=== PATIENT | male | born 1995 | race Caucasian/White ===

== ENCOUNTER 2019-09-26 22:15 | Emergency (ER) | payer OTHER ==
[2019-09-26] MEDS ORDERED: Sodium Chloride 0.9% 1000 ML 1,000 ML IV STA ×3 (22:37→22:40)
[2019-09-26] MEDS ORDERED: BABY ASPIRIN 81 MG CHEW PO ONE (22:38)
--- NOTE | 2019-09-26 22:46 | ERPHSYRPT ---
- History of Present Illness Time Seen by Provider: 09/26/19 22:30 Historian: patient Exam Limitations: no limitations Patient Subjective Stated Complaint: pt states, "I have a headache, dizzy, light headed and pain that hit my chest area which felt like an elephant but that is better not". Pt states, "I felt like my heart was gonna beat out of my chest". Triage Nursing Assessment: pt brought to rm 3, via ambulance. Pt alert and oriented x3, pleasant and cooperative. Pt laying with eyes closed, resting, answers all questions appropriately. Pt c/o headache and tightness to chest, dizziness, lightheadedness. Pts lungs clear, heart tones reg, abd soft with active bs x4 quad. nontender Physician History: Patient had sudden onset of chest pain and palpitations one hour prior to coming into the emergency department. Patient has not taken any of his medications for over one week. Timing/Duration: today, hour(s) (1) Activities at Onset: none Quality: stabbing Location: central Chest Pain Radiation: no radiation Severity of Pain-Max: severe Severity of Pain-Current: moderate Modifying Factors: Improves With: nothing Associated Symptoms: palpitations, fatigue, headache, dizziness, No nausea, No vomiting, No heartburn, No abdominal pain, No shortness of breath, No cough, No hurts to breathe, No diaphoresis, No chills, No fever, No weakness, No swelling/ lump in chest, No syncope, No rash, No back pain Prior Chest Pain/Cardiac Workup: echocardiography (pericarditis) Nitro Today/Relief: no nitro taken today Aspirin Treatment Today: no aspirin today Allergies/Adverse Reactions: latex Adverse Reaction (Mild, Verified 09/26/19 22:34) Rash tape Allergy (Uncoded 09/17/16 18:44) Blisters Home Medications: Aspirin EC 325 mg [Ecotrin 325 MG] 325 mg PO DAILY 09/17/16 [History] buPROPion HCl [Wellbutrin Sr] 150 mg PO BID 09/17/16 [History] Hx Tetanus, Diphtheria Vaccination/Date Given: Yes Hx Influenza Vaccination/Date Given: No Hx Pneumococcal Vaccination/Date Given: No Immunizations Up to Date: Yes - Review of Systems Constitutional: Fatigue, No Fever, No Chills Eyes: No Symptoms, Vision Changes, No Eye Pain, No Double Vision Ears, Nose, & Throat: No Symptoms, No Throat Swelling, No Painful Swallowing Respiratory: No Cough, No Dyspnea Cardiac: Chest Pain, Palpitations, No Edema, No Syncope Abdominal/Gastrointestinal: No Abdominal Pain, No Nausea, No Vomiting, No Diarrhea, No Hematemesis, No Melena Genitourinary Symptoms: No Dysuria, No Frequency, No Hematuria, No Flank Pain Musculoskeletal: No Back Pain, No Neck Pain Skin: No Rash Neurological: Dizziness, Headache, No Focal Weakness, No Parasthesia, No Seizure , No Sensory Changes, No Speech Changes, No Tremors, No Vertigo Psychological: No Symptoms Endocrine: No Symptoms, Polydipsia, No Excessive Sweating Hematologic/Lymphatic: No Easy Bleeding, No Easy Bruising All Other Systems: Reviewed and Negative - Past Medical History Pertinent Past Medical History: Yes Neurological History: Stroke ENT History: No Pertinent History Cardiac History: Other Respiratory History: No Pertinent History Endocrine Medical History: Diabetes Type II Musculoskeletal History: Other GI Medical History: No Pertinent History History: No Pertinent History Psycho-Social History: Depression, Other Male Reproductive Disorders: No Pertinent History Other Medical History: EXPLOSIVE DISORDER, CHRONIC RT ELBOW DISLOCATION, FACTOR V, LACUNAR INFARCT, TESTICULAR ABSCESS, pericarditis, schizophrenic - Past Surgical History Past Surgical History: Yes Neuro Surgical History: No Pertinent History Cardiac: No Pertinent History Respiratory: No Pertinent History Gastrointestinal: Other Genitourinary: No Pertinent History Musculoskeletal: Orthopedic Surgery Male Surgical History: No Pertinent History Other Surgical History: RIGHT arm and elbow surgery.tonsilectomy, rt hand, adenoids removed, back biopsy (birthmark), myringotomy, lt great toenail partial removal, Abscess I&D - Social History Smoking Status: Light tobacco smoker How long have you smoked: 3 yrs Exposure to second hand smoke: Yes Drug Use: marijuana Patient Lives Alone: No - Nursing Vital Signs Nursing Vital Signs: Initial Vital Signs Temperature 97.7 F 09/26/19 22:21 Pulse Rate 116 H 09/26/19 22:21 Respiratory Rate 18 09/26/19 22:21 Blood Pressure 105/88 09/26/19 22:21 O2 Sat by Pulse Oximetry 97 09/26/19 22:21 Pain Scale Pain Intensity 4 - Physical Exam General Appearance: no apparent distress, alert Eye Exam: PERRL/EOMI, eyes nml inspection Ears, Nose, Throat Exam: normal ENT inspection, dry mucous membranes Neck Exam: normal inspection, non-tender, supple, full range of motion, No meningismus, No Brudzinski, No JVD, No lymphadenopathy Respiratory Exam: normal breath sounds, lungs clear, No respiratory distress, No crackles/rales, No rhonchi, No wheezing, No stridor Cardiovascular Exam: regular rate/rhythm, normal heart sounds, capillary refill 2-3 sec Gastrointestinal/Abdomen Exam: soft, normal bowel sounds, No tenderness, No mass , No guarding, No rebound Back Exam: normal inspection, No CVA tenderness, No vertebral tenderness Extremity Exam: normal inspection, normal range of motion, No calf tenderness, No fareed's sign, No pedal edema, No swelling Neurologic Exam: alert, oriented x 3, cooperative, normal mood/affect, sensation nml, No motor deficits Skin Exam: normal color, warm, dry, No rash, No petechiae, No jaundice, No cyanosis SpO2 Interpretation: normal SpO2: 97 O2 Delivery: Room Air - Course Nursing assessment & vital signs reviewed: Yes EKG Interpreted by Me: RATE (117), Sinus Tach, Right [place] Deviation, NORMAL INTERVALS, NORMAL QRS, NORMAL ST-T, Other (negative previous EKG for comparison) - Radiology Exams Chest X-ray Interpretation: Interpreted by me, Reviewed by me, Negative, No Pneumonia , No Pneumothorax, Nml Heart Size, No Infiltrates, Nml Mediastinum - CT Exams Chest CT Interpretation: Tele-radiologist Report, Other (pper radiologist interpretation:lungs: No significant or acute abnormality. No consolidation. Pleural space: No acute abnormality. No pneumothorax. No significant pleural effusion. Heart: Heart meds and instructions socially no acute abnormality. Pulmonary arteries: No vascular intraluminal filling defects to suggest pulmonary embolism. Aortic: No acute abnormality. No aortic aneurysm or dissection. No large lymph nodes. No acute osseous abnormality. No acute fracture. Bilateral retroareolar glandular tissue consistent with gynecomastia. 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 STAT Care 09/26/19 22:38 Active EKG-ER Only STAT Care 09/26/19 22:37 Active IV Insertion STAT Care 09/26/19 22:37 Active IV Insertion-2nd Peripheral STAT Care 09/26/19 22:37 Active Pulse Oximetry (ED) STAT Care 09/26/19 22:38 Active CHEST 1 VIEW (PORTABLE) Stat Exams 09/26/19 22:37 Taken CHEST WITH CONTRAST [CT] Stat Exams 09/26/19 23:23 Taken AMYLASE Routine Lab 09/26/19 23:09 Completed BLOOD CULTURE Stat Lab 09/26/19 23:51 Received BMP Stat Lab 09/27/19 02:09 Completed CBC W DIFF Stat Lab 09/26/19 23:09 Completed CK-Creatinine Phosphokinase Routine Lab 09/26/19 23:09 Completed CMP Routine Lab 09/26/19 23:09 Completed CULTURE,URINE Stat Lab 09/26/19 22:37 Received ETHYL ALCOHOL Routine Lab 09/26/19 23:09 Completed LIPASE Routine Lab 09/26/19 23:09 Completed Lactic Acid Stat Lab 09/27/19 02:20 Results Lactic Acid Urgent Lab 09/26/19 23:15 Completed MAGNESIUM Routine Lab 09/26/19 23:09 Completed PROTIME WITH INR Stat Lab 09/26/19 23:09 Completed PTT Stat Lab 09/26/19 23:09 Completed TROPONIN Q3H Lab 09/26/19 23:09 Completed TROPONIN Q3H Lab 09/27/19 02:09 Completed TROPONIN Q3H Lab 09/27/19 04:45 Ordered TROPONIN Q3H Lab 09/27/19 07:45 Ordered TROPONIN Q3H Lab 09/27/19 10:45 Ordered UA W/RFX UR CULTURE Stat Lab 09/26/19 22:37 Completed VENOUS BLOOD GAS Urgent Lab 09/26/19 23:15 Completed Medication Summary Discontinued Medications Generic Name Dose Route Start Last Admin Trade Name Freq PRN Reason Stop Dose Admin Acetaminophen 975 mg 09/27/19 02:51 09/27/19 03:04 Tylenol 325 Mg PO 09/27/19 02:52 975 mg STAT ONE Administration Acetaminophen Confirm 09/27/19 03:00 Tylenol 325 Mg Administered 09/27/19 03:01 Dose 975 mg .ROUTE .STK-MED ONE Aspirin 324 mg 09/26/19 22:38 09/26/19 22:55 Baby Aspirin 81 Mg Chew PO 09/26/19 22:39 324 mg STAT ONE Administration Aspirin Confirm 09/26/19 22:53 Baby Aspirin 81 Mg Chew Administered 09/26/19 22:54 Dose 324 mg .ROUTE .STK-MED ONE Diphenhydramine HCl 25 mg 09/27/19 01:43 09/27/19 01:56 Benadryl 50 Mg/Ml IV 09/27/19 01:44 25 mg STAT ONE Administration Diphenhydramine HCl Confirm 09/27/19 01:53 Benadryl 50 Mg/Ml Administered 09/27/19 01:54 Dose 50 mg .ROUTE .STK-MED ONE Diphenhydramine HCl 25 mg 09/27/19 02:51 09/27/19 03:05 Benadryl 50 Mg/Ml IV 09/27/19 02:52 25 mg STAT ONE Administration Diphenhydramine HCl Confirm 09/27/19 03:00 Benadryl 50 Mg/Ml Administered 09/27/19 03:01 Dose 50 mg .ROUTE .STK-MED ONE Hydromorphone HCl 1 mg 09/27/19 02:51 09/27/19 03:06 Hydromorphone 1 Mg/Ml Ampule IV 09/27/19 02:52 1 mg STAT ONE Administration Hydromorphone HCl Confirm 09/27/19 03:00 Hydromorphone 1 Mg/Ml Ampule Administered 09/27/19 03:01 Dose 1 mg .ROUTE .STK-MED ONE Sodium Chloride 1,000 mls @ 999 mls/hr 09/26/19 22:37 09/26/19 22:54 Sodium Chloride 0.9% 1000 Ml IV 09/26/19 23:37 999 mls/hr .Q1H1M STA Administration Sodium Chloride 1,000 mls @ 999 mls/hr 09/26/19 22:38 09/26/19 22:55 Sodium Chloride 0.9% 1000 Ml IV 09/26/19 23:38 999 mls/hr .Q1H1M STA Administration Sodium Chloride 1,000 mls @ 999 mls/hr 09/26/19 22:40 09/27/19 00:19 Sodium Chloride 0.9% 1000 Ml IV 09/26/19 23:40 999 mls/hr .Q1H1M STA Administration Sodium Chloride Confirm 09/26/19 22:53 Sodium Chloride 0.9% 1000 Ml Administered 09/26/19 22:54 Dose 2,000 mls @ ud .ROUTE .STK-MED ONE Sodium Chloride Confirm 09/27/19 00:15 Sodium Chloride 0.9% 1000 Ml Administered 09/27/19 00:16 Dose 1,000 mls @ ud .ROUTE .STK-MED ONE Insulin Human Regular 14 unit 09/26/19 23:43 09/27/19 00:20 Novolin R IV 09/26/19 23:44 14 unit STAT ONE Administration Insulin Human Regular Confirm 09/27/19 00:15 Novolin R Administered 09/27/19 00:16 Dose 14 unit .ROUTE .STK-MED ONE Ketorolac Tromethamine 30 mg 09/27/19 01:43 09/27/19 01:56 Toradol 30 Mg Injection IV 09/27/19 01:44 30 mg STAT ONE Administration Ketorolac Tromethamine Confirm 09/27/19 01:53 Toradol 30 Mg Injection Administered 09/27/19 01:54 Dose 30 mg .ROUTE .STK-MED ONE Morphine Sulfate 4 mg 09/26/19 23:35 09/27/19 00:17 Morphine Sulfate 4 Mg Inj IV 09/26/19 23:36 4 mg STAT ONE Administration Morphine Sulfate Confirm 09/27/19 00:15 Morphine Sulfate 4 Mg Inj Administered 09/27/19 00:16 Dose 4 mg .ROUTE .STK-MED ONE Lab/Rad Data: Laboratory Result Diagrams 09/26/19 23:09 09/27/19 02:09 Laboratory Results 09/27/19 09/27/19 09/27/19 Range/Units 02:20 02:09 02:09 WBC (4.0-10.5) K/mm3 RBC (4.1-5.6) M/mm3 Hgb (12.5-18.0) gm/dl Hct (42-50) % MCV (78-100) fl MCH (26-32) pg MCHC (32-36) g/dl RDW (11.5-14.0) % Plt Count (150-450) K/mm3 MPV (6-9.5) fl Gran % (36.0-66.0) % Eos # (Auto) (0-0.5) Absolute Lymphs (auto) (1.0-4.6) Absolute Monos (auto) (0.0-1.3) Lymphocytes % (24.0-44.0) % Monocytes % (0.0-12.0) % Eosinophils % (0.00-5.0) % Basophils % (0.0-0.4) % Absolute Granulocytes (1.4-6.9) Basophils # (0-0.4) PT (8.83-12.87) SECONDS INR (0.8-3.0) APTT (24.1-36.1) SECONDS pO2/FiO2 Ratio % VBG pH (7.32-7.42) VBG pCO2 at Pat Temp (42-55) mm/Hg VBG pO2 at Pat Temp (25-40) mm/Hg VBG HCO3 (22-28) meq/L VBG O2 Sat (Brian) (95-100) VBG Base Excess (-2.0-2.0) VBG Hemoglobin VBG Carboxyhemoglobin (0.0-6.9) % T HGB POC Potassium (3.5-5.1) Sodium 140 (137-145) mmol/L Potassium 4.0 (3.5-5.1) mmol/L Chloride 106 (98-107) mmol/L Carbon Dioxide 24 (22-30) mmol/L Anion Gap 13.5 (5-15) MEQ/L BUN 5 L (9-20) mg/dL Creatinine 0.42 L (0.66-1.25) mg/dL Estimated GFR > 60.0 ML/MIN Glucose 324 H (74-106) mg/dL Lactic Acid 2.1 H (0.4-2.0) Calcium 9.2 (8.4-10.2) mg/dL Magnesium (1.6-2.3) mg/dL Total Bilirubin (0.2-1.3) mg/dL AST (17-59) U/L ALT (0-50) U/L Alkaline Phosphatase (38-126) U/L Creatine Kinase (55-170) U/L Troponin I < 0.012 (0.000-0.034) ng/mL Serum Total Protein (6.3-8.2) g/dL Albumin (3.5-5.0) g/dL Amylase (30-110) U/L Lipase (23-300) U/L Urine Color (YELLOW) Urine Appearance (CLEAR) Urine pH (5-6) Ur Specific [place] (1.005-1.025) Urine Protein (Negative) Urine Ketones (NEGATIVE) Urine Blood (0-5) [place]/ul Urine Nitrite (NEGATIVE) Urine Bilirubin (NEGATIVE) Urine Urobilinogen (0-1) mg/dL Ur Leukocyte Esterase (NEGATIVE) Urine WBC (Auto) (0-5) /HPF Urine RBC (Auto) (0-2) /HPF U Epithel Cells (Auto) (FEW) /HPF Urine Bacteria (Auto) (NEGATIVE) /HPF Urine Culture Reflexed (NO) Urine Glucose (NEGATIVE) mg/dL Ethyl Alcohol (0-10) mg/dL 09/26/19 09/26/19 09/26/19 Range/Units 23:15 23:09 23:09 WBC (4.0-10.5) K/mm3 RBC (4.1-5.6) M/mm3 Hgb (12.5-18.0) gm/dl Hct (42-50) % MCV (78-100) fl MCH (26-32) pg MCHC (32-36) g/dl RDW (11.5-14.0) % Plt Count (150-450) K/mm3 MPV (6-9.5) fl Gran % (36.0-66.0) % Eos # (Auto) (0-0.5) Absolute Lymphs (auto) (1.0-4.6) Absolute Monos (auto) (0.0-1.3) Lymphocytes % (24.0-44.0) % Monocytes % (0.0-12.0) % Eosinophils % (0.00-5.0) % Basophils % (0.0-0.4) % Absolute Granulocytes (1.4-6.9) Basophils # (0-0.4) PT 11.9 (8.83-12.87) SECONDS INR 1.05 (0.8-3.0) APTT 32.0 (24.1-36.1) SECONDS pO2/FiO2 Ratio 21.0 % VBG pH 7.40 (7.32-7.42) VBG pCO2 at Pat Temp 38 L (42-55) mm/Hg VBG pO2 at Pat Temp 87 H (25-40) mm/Hg VBG HCO3 23.5 (22-28) meq/L VBG O2 Sat (Brian) 97.8 (95-100) VBG Base Excess -1.0 (-2.0-2.0) VBG Hemoglobin 15.0 VBG Carboxyhemoglobin 5.8 (0.0-6.9) % T HGB POC Potassium 3.9 (3.5-5.1) Sodium 140 (137-145) mmol/L Potassium 4.1 (3.5-5.1) mmol/L Chloride 103 (98-107) mmol/L Carbon Dioxide 24 (22-30) mmol/L Anion Gap 16.1 H (5-15) MEQ/L BUN 6 L (9-20) mg/dL Creatinine 0.45 L (0.66-1.25) mg/dL Estimated GFR > 60.0 ML/MIN Glucose 402 H (74-106) mg/dL Lactic Acid 3.5 H (0.4-2.0) Calcium 9.4 (8.4-10.2) mg/dL Magnesium 1.8 (1.6-2.3) mg/dL Total Bilirubin 0.40 (0.2-1.3) mg/dL AST 24 (17-59) U/L ALT 25 (0-50) U/L Alkaline Phosphatase 104 (38-126) U/L Creatine Kinase 40 L (55-170) U/L Troponin I < 0.012 (0.000-0.034) ng/mL Serum Total Protein 7.8 (6.3-8.2) g/dL Albumin 4.3 (3.5-5.0) g/dL Amylase 58 (30-110) U/L Lipase 76 (23-300) U/L Urine Color (YELLOW) Urine Appearance (CLEAR) Urine pH (5-6) Ur Specific [place] (1.005-1.025) Urine Protein (Negative) Urine Ketones (NEGATIVE) Urine Blood (0-5) Kameron/ul Urine Nitrite (NEGATIVE) Urine Bilirubin (NEGATIVE) Urine Urobilinogen (0-1) mg/dL Ur Leukocyte Esterase (NEGATIVE) Urine WBC (Auto) (0-5) /HPF Urine RBC (Auto) (0-2) /HPF U Epithel Cells (Auto) (FEW) /HPF Urine Bacteria (Auto) (NEGATIVE) /HPF Urine Culture Reflexed (NO) Urine Glucose (NEGATIVE) mg/dL Ethyl Alcohol < 10 (0-10) mg/dL 09/26/19 09/26/19 Range/Units 23:09 22:37 WBC 7.4 (4.0-10.5) K/mm3 RBC 5.23 (4.1-5.6) M/mm3 Hgb 15.1 (12.5-18.0) gm/dl Hct 42.9 (42-50) % MCV 82.0 (78-100) fl MCH 28.9 (26-32) pg MCHC 35.2 (32-36) g/dl RDW 13.1 (11.5-14.0) % Plt Count 233 (150-450) K/mm3 MPV 10.3 H (6-9.5) fl Gran % 61.4 (36.0-66.0) % Eos # (Auto) 0.03 (0-0.5) Absolute Lymphs (auto) 2.43 (1.0-4.6) Absolute Monos (auto) 0.38 (0.0-1.3) Lymphocytes % 32.8 (24.0-44.0) % Monocytes % 5.1 (0.0-12.0) % Eosinophils % 0.4 (0.00-5.0) % Basophils % 0.3 (0.0-0.4) % Absolute Granulocytes 4.55 (1.4-6.9) Basophils # 0.02 (0-0.4) PT (8.83-12.87) SECONDS INR (0.8-3.0) APTT (24.1-36.1) SECONDS pO2/FiO2 Ratio % VBG pH (7.32-7.42) VBG pCO2 at Pat Temp (42-55) mm/Hg VBG pO2 at Pat Temp (25-40) mm/Hg VBG HCO3 (22-28) meq/L VBG O2 Sat (Brian) (95-100) VBG Base Excess (-2.0-2.0) VBG Hemoglobin VBG Carboxyhemoglobin (0.0-6.9) % T HGB POC Potassium (3.5-5.1) Sodium (137-145) mmol/L Potassium (3.5-5.1) mmol/L Chloride (98-107) mmol/L Carbon Dioxide (22-30) mmol/L Anion Gap (5-15) MEQ/L BUN (9-20) mg/dL Creatinine (0.66-1.25) mg/dL Estimated GFR ML/MIN Glucose (74-106) mg/dL Lactic Acid (0.4-2.0) Calcium (8.4-10.2) mg/dL Magnesium (1.6-2.3) mg/dL Total Bilirubin (0.2-1.3) mg/dL AST (17-59) U/L ALT (0-50) U/L Alkaline Phosphatase (38-126) U/L Creatine Kinase (55-170) U/L Troponin I (0.000-0.034) ng/mL Serum Total Protein (6.3-8.2) g/dL Albumin (3.5-5.0) g/dL Amylase (30-110) U/L Lipase (23-300) U/L Urine Color STRAW (YELLOW) Urine Appearance CLEAR (CLEAR) Urine pH 6.0 (5-6) Ur Specific [place] 1.038 (1.005-1.025) Urine Protein 100 (Negative) Urine Ketones NEGATIVE (NEGATIVE) Urine Blood NEGATIVE (0-5) Kameron/ul Urine Nitrite NEGATIVE (NEGATIVE) Urine Bilirubin NEGATIVE (NEGATIVE) Urine Urobilinogen NEGATIVE (0-1) mg/dL Ur Leukocyte Esterase NEGATIVE (NEGATIVE) Urine WBC (Auto) NONE (0-5) /HPF Urine RBC (Auto) NONE (0-2) /HPF U Epithel Cells (Auto) NONE (FEW) /HPF Urine Bacteria (Auto) NONE (NEGATIVE) /HPF Urine Culture Reflexed ORDERED SEPARATELY (NO) Urine Glucose >=500 (NEGATIVE) mg/dL Ethyl Alcohol (0-10) mg/dL - Progress Progress: re-examined Air Movement: good Progress Note: 09/26/19 23:30 Patient has been in sinus tachycardia on the desk monitor in the 110s. Patient would like to go to [facility] as that was his original desire when the EMS personnel transported him to the hospital as he gets his medical care at that facility and he is from [place], [place]. Patient does not want transfer via ambulance due to cost issues. 09/26/19 23:35 Patient states he will stay for further evaluation and management. Still with a headache. 09/27/19 01:29 Headache has improved with pain down to a 4. Patient is in sinus tachycardia on the desk monitor in the 110s. 09/27/19 02:25 Headache resolved. No Neurologic deficits. Patient has maintained sinus rhythm throughout his time on the desk monitor with rate now in the low 100s. 09/27/19 02:43 Patient has not had any chest pain since the early first 10 minutes of being in the emergency department. Sinus rhythm with no ectopy, arrhythmia, ischemia, injury or infarction throughout his time in the emergency department HEART score: 2, up to 1.6% of MACE in the next 6 weeks, low risk this being cardiac in origin with two negative troponins 09/27/19 02:54 Headache has returned. IV pain medication with oral Tylenol will be given to the patient 09/27/19 03:56 Patient's headache has resolved and pulse is in late 90s in sinus rhythm on repeat evaluation. Patient will be discharged home since low probability of any acute cardiac, pulmonary, vascular or infectious etiology causing his chest pain at this time and to continue evaluation as an outpatient. Blood Culture(s) Obtained: Yes Antibiotics given: No Counseled pt/family regarding: lab results, diagnosis, need for follow-up, rad results - Departure Departure Disposition: Home Clinical Impression: Hyperglycemia without ketosis, Dehydration, Elevated blood pressure reading without diagnosis of hypertension, Noncompliance, Acute chest pain Headache Qualifiers: Headache type: unspecified Headache chronicity pattern: acute headache Intractability: not intractable Qualified Code(s): R51 - Headache Condition: Good Critical Care Time: Yes Critical Care Time(excluding separately billable procedures): Critical 30-74 mins Referrals: THERESE DOOLEY [Primary Care Provider] - 09/27/19 Instructions: DASH Diet, Dehydration, Adult (DC), Chest Pain (DC), Hyperglycemia, Adult (DC), Headache, Adult (DC) Additional Instructions: Discharge/Care Plan MAYNOR RUIZ ELIZ FLEMING was seen on 09/27/19 in the Emergency Room. The patient was counseled regarding Diagnosis,Lab results, Imaging studies, need for follow up and when to return to the Emergency Room. Return immediately if any new chest pain, shortness of breath, fever, back pain, skin rash or any other concerning signs of symptoms that were not present at today's emergency department visit for immediate re-evaluation in the emergency department. Prescriptions given: None Discharge Note I have spoken with the patient and family. I have explained the patient's condition, diagnosis and treatment plan based on the information available to me at this time. I have answered the patient's and family's questions and addressed any concerns. The patient and family have a good understanding of the patient's diagnosis, condition and treatment plan as can be expected at this point. The vital signs have been stable. The patient's condition is stable and appropriate for discharge from the emergency department. The patient will pursue further outpatient evaluation with the primary care physician or other designated or consulting physician as outlined in the discharge instructions. The patient and family are agreeable to this plan of care and follow-up instructions have been explained in detail. The patient and family have received these instruction. The patient and family are aware that any significant change in condition or worsening of symptoms should prompt an immediate return to this or the closest emergency department or call 911.
[2019-09-26] MEDS ORDERED: Sodium Chloride 0.9% 1000 ML 2,000 ML ONE (22:53)
[2019-09-26] MEDS ORDERED: BABY ASPIRIN 81 MG CHEW ONE (22:53)
[2019-09-26 23:10] LABS: Absolute Neutrophil Ct (ANC) 4.55 (1.4-6.9); BASOPHIL % 0.3 % (0.0-0.4); Basophil (Absolute #) 0.02 (0-0.4); Eosinophil % 0.4 % (0.00-5.0); Eosinophil (Absolute #) 0.03 (0-0.5); Hematocrit 42.9 % (42-50); Hemoglobin 15.1 gm/dl (12.5-18.0); Lymphocyte (Absolute #) 2.43 (1.0-4.6); Lymphocytes % 32.8 % (24.0-44.0); Mean Corpuscular Hemoglobin 28.9 pg (26-32); Mean Corpuscular Hgb Concent. 35.2 g/dl (32-36); Mean Platelet Volume 10.3 fl (6-9.5); Monocyte (Absolute #) 0.38 (0.0-1.3); Monocytes % 5.1 % (0.0-12.0); Neutrophil % 61.4 % (36.0-66.0); Platelet Count 233 K/mm3 (150-450); Red Blood Count 5.23 M/mm3 (4.1-5.6); Red Cell Distribution Width 13.1 % (11.5-14.0); White Blood Count 7.4 K/mm3 (4.0-10.5)
[2019-09-26 23:19] LABS: INR 1.05 (0.8-3.0); PROTIME 11.9 SECONDS (8.83-12.87)
[2019-09-26 23:22] LABS: Lactic Acid 3.5 (0.4-2.0); VBG CARBOXYHEMOGLOBIN 5.8 % T HGB (0.0-6.9); VBG HCO3- 23.5 meq/L (22-28); VBG O2 SATURATION 97.8 (95-100); VBG PCO2 38 mm/Hg (42-55); VBG PO2 87 mm/Hg (25-40); VBG POTASSIUM 3.9 (3.5-5.1)
[2019-09-26 23:35] LABS: ALBUMIN 4.3 g/dL (3.5-5.0); ALKALINE PHOSPHATASE 104 U/L (38-126); AMYLASE 58 U/L (30-110); ANION GAP 16.1 MEQ/L (5-15); BLOOD UREA NITROGEN 6 mg/dL (9-20); CHLORIDE 103 mmol/L (98-107); CK-Creatinine Phosphokinase 40 U/L (55-170); Calcium 9.4 mg/dL (8.4-10.2); Carbon Dioxide 24 mmol/L (22-30); Creatinine 1 0.45 mg/dL (0.66-1.25); Glucose 402 mg/dL (74-106); LIPASE 76 U/L (23-300); MAGNESIUM 1.8 mg/dL (1.6-2.3); Potassium 4.1 mmol/L (3.5-5.1); SGOT/AST 24 U/L (17-59); SGPT/ALT 25 U/L (0-50); SODIUM 140 mmol/L (137-145); Total Protein 7.8 g/dL (6.3-8.2)
[2019-09-26] MEDS ORDERED: MORPHINE SULFATE 4 MG INJ IV ONE (23:35)
[2019-09-26 23:39] LABS: ETHYL ALCOHOL < 10 mg/dL (0-10); TROPONIN < 0.012 ng/mL (0.000-0.034)
[2019-09-26] MEDS ORDERED: NovoLIN R IV ONE (23:43)
[2019-09-27] MEDS ORDERED: Sodium Chloride 0.9% 1000 ML 1,000 ML ONE (00:15)
[2019-09-27] MEDS ORDERED: MORPHINE SULFATE 4 MG INJ ONE (00:15)
[2019-09-27] MEDS ORDERED: NovoLIN R ONE (00:15)
[2019-09-27 01:10] LABS: Appearance CLEAR (CLEAR); Bilirubin NEGATIVE (NEGATIVE); Blood NEGATIVE Ery/ul (0-5); Glucose >=500 mg/dL (NEGATIVE); Ketones NEGATIVE (NEGATIVE); Leukocyte Esterase NEGATIVE (NEGATIVE); Nitrite NEGATIVE (NEGATIVE); Protein,Urine Dip 100 (Negative); Specific Gravity 1.038 (1.005-1.025); Urobilinogen NEGATIVE mg/dL (0-1)
[2019-09-27] MEDS ORDERED: TORAdol 30 mg Injection IV ONE (01:43)
[2019-09-27] MEDS ORDERED: BENADRYL 50 MG/ML IV ONE ×2 (01:43→02:51)
[2019-09-27] MEDS ORDERED: TORAdol 30 mg Injection ONE (01:53)
[2019-09-27] MEDS ORDERED: BENADRYL 50 MG/ML ONE ×2 (01:53→03:00)
[2019-09-27 02:22] LABS: ANION GAP 13.5 MEQ/L (5-15); BLOOD UREA NITROGEN 5 mg/dL (9-20); CHLORIDE 106 mmol/L (98-107); Calcium 9.2 mg/dL (8.4-10.2); Carbon Dioxide 24 mmol/L (22-30); Creatinine 1 0.42 mg/dL (0.66-1.25); Glucose 324 mg/dL (74-106); SODIUM 140 mmol/L (137-145)
[2019-09-27 02:24] LABS: Lactic Acid 2.1 (0.4-2.0)
[2019-09-27] MEDS ORDERED: TYLENOL 325 MG PO ONE (02:51)
[2019-09-27] MEDS ORDERED: Hydromorphone 1 mg/ml Ampule IV ONE (02:51)
[2019-09-27] MEDS ORDERED: TYLENOL 325 MG ONE (03:00)
[2019-09-27] MEDS ORDERED: Hydromorphone 1 mg/ml Ampule ONE (03:00)
[2019-09-27 03:55] VITALS: BP 121/83; PULSE 102
[2019-09-27 03:58] VITALS: O2SAT 97
--- NOTE | 2019-09-27 09:10 | XRAY ---
Indication: Chest pain. Comparison: September 17, 2016. Portable chest demonstrates normal heart, lungs, and bony thorax.
--- NOTE | 2019-09-27 09:15 | XRAY ---
Indication: Chest pain, palpitations, and headache. Multiple contiguous axial images obtained through the chest using 80 cc Isovue 370 contrast and PE protocol. Comparison: CT chest without contrast January 22, 2016. There is suboptimal opacification of the pulmonary arteries and mild respiration artifact limiting evaluation for pulmonary embolus. No obvious central pulmonary embolus. Heart is not enlarged. Aorta is normal in course and caliber. No pathologic mediastinal/hilar lymphadenopathy. Lungs are inflated with minimal bilateral dependent atelectasis. Previous bilateral micronodules not seen possibly explained by different since in slice acquisition or respiration artifact. No suspicious pulmonary mass, infiltrate, or effusion. Bony thorax intact. Limited upper abdomen including adrenal glands are unremarkable. Impression: 1. Pulmonary embolus evaluation limited due to suboptimal opacification and respiration artifact. No obvious central pulmonary embolus. 2. Remaining CT chest with contrast exam is negative. Comment: Preliminary interpretation was made by [facility]. No critical discrepancy. CT DI 33.69
== END 2019-09-27 04:05 | disposition home or self-care (01) ==
LOC: ED 22:15
DX: E11.65 Type 2 diabetes mellitus with hyperglycemia (principal); E86.0 Dehydration; R03.0 Elevated blood-pressure reading, without diagnosis of hypertension; Z91.19 Patient's noncompliance with other medical treatment and regimen; R07.9 Chest pain, unspecified; R51 Headache
CPT/HCPCS: 36415; 71260; 80048; 80053; 81001; 82150; 82550; 82805; 82962; 83605; 83690; 83735; 84484; 85025; 85610; 85730; 87040; 87086; 93005; 93041; 96360; 96361; 96374; 96375; 96376; 99291; G0480; 36000; 71045; 80307; 94760; 99285; J1170; J1200; J1885; J2270; A9270-GY

== ENCOUNTER 2021-08-17 04:05 | Emergency (ER) | payer OTHER ==
--- NOTE | 2021-08-17 04:35 | ERPHSYRPT ---
- History of Present Illness Time Seen by Provider: 08/17/21 04:10 Source: patient Exam Limitations: no limitations Physician History: This is a 26-year-old white male patient of Dr. Hogan who presents with history of headache and he feels like possible stroke. Patient went to bed at 1 AM and his headache woke him up out of a sleep at approximately 330. Patient arrives to the emergency department around 4 AM via EMS service. Patient does have a history of restless leg syndrome, anxiety and schizophrenia. He has a history of insulin-dependent diabetes as well. He also states that in the last 2 days he has had generalized sensation of [id number] all over his body. He does present with mild chest pain as well. Upon arrival to the emergency department his systolic blood pressure was approximately 180, therefore we sent him directly to the CT scanner. When he returned his systolic blood pressure is now in the 140s. Patient's blood sugar on arrival was 346 Timing/Duration: today Severity: moderate Character of Deficits: altered sensation, general (difuse) Deficits: no difficulties Baseline/Normal Cognition: alert oriented x 3 Current Cognition: alert oriented x 3 Baseline Gait: walks w/o assistance Associated Symptoms: paresthesia Allergies/Adverse Reactions: diphenhydramine [From Benadryl] Adverse Reaction (Intermediate, Verified 08/17/21 04:50) latex Adverse Reaction (Mild, Verified 08/17/21 04:50) Rash tape Allergy (Uncoded 08/17/21 04:50) Blisters Home Medications: Gabapentin 300 mg [Neurontin 300 mg] 300 mg PO BID 08/17/21 [History] Insulin Glargine,Hum.rec.anlog [Basaglar Kwikpen U-100] 25 unit SQ HS 08/17/21 [History] Insulin Lispro [Admelog] 20 unit SQ TIDWMEALS 08/17/21 [History] Risperidone 2 mg PO BID 08/17/21 [History] Ropinirole HCl 0.25 mg PO HS 08/17/21 [History] Smz/Tmp Ds Tablet [Bactrim Ds Tablet] 1 tab PO Q12H 08/17/21 [History] Hx Tetanus, Diphtheria Vaccination/Date Given: Yes Hx Influenza Vaccination/Date Given: No Hx Pneumococcal Vaccination/Date Given: No Travel Risk - International Travel Have you traveled outside of the country in past 3 weeks: No - Coronavirus Screening Are you exhibiting any of the following symptoms?: No Close contact with a COVID-19 positive Pt in past 14-21 Days: No - Review of Systems Constitutional: No Symptoms Eyes: No Symptoms Ears, Nose, & Throat: No Symptoms Respiratory: No Symptoms Cardiac: No Symptoms Abdominal/Gastrointestinal: No Symptoms Genitourinary Symptoms: No Symptoms Musculoskeletal: No Symptoms Skin: No Symptoms Neurological: Headache, Parasthesia (Generalized) Psychological: No Symptoms Endocrine: No Symptoms Hematologic/Lymphatic: No Symptoms Immunological/Allergic: No Symptoms All Other Systems: Reviewed and Negative - Past Medical History Pertinent Past Medical History: Yes Neurological History: Stroke ENT History: No Pertinent History Cardiac History: Other Respiratory History: No Pertinent History Endocrine Medical History: Diabetes Type II Musculoskeletal History: Other GI Medical History: No Pertinent History History: No Pertinent History Psycho-Social History: Depression, Other Male Reproductive Disorders: No Pertinent History Other Medical History: EXPLOSIVE DISORDER, CHRONIC RT ELBOW DISLOCATION, FACTOR V, LACUNAR INFARCT, TESTICULAR ABSCESS, pericarditis, schizophrenic - Past Surgical History Past Surgical History: Yes Neuro Surgical History: No Pertinent History Cardiac: No Pertinent History Respiratory: No Pertinent History Gastrointestinal: Other Genitourinary: No Pertinent History Musculoskeletal: Orthopedic Surgery Male Surgical History: No Pertinent History Other Surgical History: RIGHT arm and elbow surgery.tonsilectomy, rt hand, adenoids removed, back biopsy (birthmark), myringotomy, lt great toenail partial removal, Abscess I&D - Social History Smoking Status: Light tobacco smoker How long have you smoked: 3 yrs Exposure to second hand smoke: Yes Drug Use: marijuana Patient Lives Alone: No - Nursing Vital Signs Nursing Vital Signs: Initial Vital Signs Temperature 98.4 F 08/17/21 04:08 Pulse Rate 114 H 08/17/21 04:08 Respiratory Rate 20 08/17/21 04:08 Blood Pressure 181/101 08/17/21 04:08 O2 Sat by Pulse Oximetry 98 08/17/21 04:08 Pain Scale Pain Intensity 6 - Shanta Coma Scale Best Eye Response ([place]): (4) open spontaneously Best Verbal Response ([place]): (5) oriented Best Motor Response ([place]): (6) obeys commands [place] Total: 15 - Physical Exam General Appearance: no apparent distress, alert, anxiety, obese Eye Exam: bilateral eye: normal inspection, PERRL, EOMI Ears, Nose, Throat Exam: normal ENT inspection, moist mucous membranes Neck Exam: normal inspection, non-tender, supple, full range of motion Respiratory: normal breath sounds, chest tenderness (Mild central substernal nonradiating), lungs clear, airway intact, No respiratory distress Cardiovascular: tachycardia Gastrointestinal: soft, normal bowel sounds, No tenderness Rectal Exam: not done Back Exam: normal inspection, normal range of motion, No CVA tenderness, No vertebral tenderness Extremity Exam: normal inspection, normal range of motion, pelvis stable Mental Status: alert, oriented x 3, 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 Care 08/17/21 04:53 Active EKG-ER Only STAT Care 08/17/21 04:52 Active IV Insertion STAT Care 08/17/21 04:52 Active NPO (ED) STAT Care 08/17/21 04:52 Active Pulse Oximetry (ED) STAT Care 08/17/21 04:52 Active HEAD WITHOUT CONTRAST [CT] Stat Exams 08/17/21 04:15 Taken CBC W DIFF Stat Lab 08/17/21 05:00 Completed CMP Stat Lab 08/17/21 05:00 Completed POCT GLUCOSE Stat Lab 08/17/21 04:45 Completed PROTIME WITH INR Stat Lab 08/17/21 05:00 Completed TROPONIN Q3H Lab 08/17/21 05:00 Completed TROPONIN Q3H Lab 08/17/21 08:00 Ordered TROPONIN Q3H Lab 08/17/21 11:00 Ordered TROPONIN Q3H Lab 08/17/21 14:00 Ordered TROPONIN Q3H Lab 08/17/21 17:00 Ordered UA W/RFX UR CULTURE Stat Lab 08/17/21 05:01 Completed Urine Triage Profile Stat Lab 08/17/21 05:01 Completed Medication Summary Discontinued Medications Generic Name Dose Route Start Last Admin Trade Name Fletcher PRN Reason Stop Dose Admin Morphine Sulfate 2 mg 08/17/21 04:53 08/17/21 05:07 Morphine Sulfate 2 Mg Inj IV 08/17/21 04:54 2 mg STAT ONE Administration Morphine Sulfate Confirm 08/17/21 05:05 Morphine Sulfate 2 Mg Inj Administered 08/17/21 05:06 Dose 2 mg .ROUTE .STK-MED ONE Ondansetron HCl 4 mg 08/17/21 04:53 08/17/21 05:08 Zofran 4 Mg/2 Ml Vial IV 08/17/21 04:54 4 mg STAT ONE Administration Ondansetron HCl Confirm 08/17/21 05:05 Zofran 4 Mg/2 Ml Vial Administered 08/17/21 05:06 Dose 4 mg .ROUTE .STK-MED ONE Lab/Rad Data: Laboratory Result Diagrams 08/17/21 05:00 08/17/21 05:00 Laboratory Results 08/17/21 08/17/21 08/17/21 Range/Units 05:01 05:01 05:00 WBC (4.0-10.5) K/mm3 RBC (4.1-5.6) M/mm3 Hgb (12.5-18.0) gm/dl Hct (42-50) % MCV (78-100) fl MCH (26-32) pg MCHC (32-36) g/dl RDW (11.5-14.0) % Plt Count (150-450) K/mm3 MPV (7.5-11.0) fl Gran % (36.0-66.0) % Eos # (Auto) (0-0.5) Absolute Lymphs (auto) (1.0-4.6) Absolute Monos (auto) (0.0-1.3) Lymphocytes % (24.0-44.0) % Monocytes % (0.0-12.0) % Eosinophils % (0.00-5.0) % Basophils % (0.0-0.4) % Absolute Granulocytes (1.4-6.9) Basophils # (0-0.4) PT (9.4-12.5) SECONDS INR (0.8-3.0) Sodium (137-145) mmol/L Potassium (3.5-5.1) mmol/L Chloride (98-107) mmol/L Carbon Dioxide (22-30) mmol/L Anion Gap (5-15) MEQ/L BUN (9-20) mg/dL Creatinine (0.66-1.25) mg/dL Estimated GFR ML/MIN Glucose (74-106) mg/dL POC Glucometer (74 to 106) mg/dL Calcium (8.4-10.2) mg/dL Total Bilirubin (0.2-1.3) mg/dL AST (17-59) U/L ALT (0-50) U/L Alkaline Phosphatase (38-126) U/L Troponin I < 0.012 (0.000-0.034) ng/mL Serum Total Protein (6.3-8.2) g/dL Albumin (3.5-5.0) g/dL Urine Color STRAW (YELLOW) Urine Appearance CLEAR (CLEAR) Urine pH 8.0 (5-6) Ur Specific [place] 1.020 (1.005-1.025) Urine Protein NEGATIVE (Negative) Urine Ketones NEGATIVE (NEGATIVE) Urine Blood NEGATIVE (0-5) [place]/ul Urine Nitrite NEGATIVE (NEGATIVE) Urine Bilirubin NEGATIVE (NEGATIVE) Urine Urobilinogen NEGATIVE (0-1) mg/dL Ur Leukocyte Esterase NEGATIVE (NEGATIVE) Urine WBC (Auto) NONE (0-5) /HPF Urine RBC (Auto) NONE (0-2) /HPF U Epithel Cells (Auto) RARE (FEW) /HPF Urine Bacteria (Auto) RARE (NEGATIVE) /HPF Amorphous Crystals FEW (NEGATIVE) /HPF Urine Culture Reflexed NO (NO) Urine Glucose >=500 (NEGATIVE) mg/dL Urine Opiates Level NEGATIVE (NEGATIVE) Ur Methadone NEGATIVE (NEGATIVE) Urine Barbiturates NEGATIVE (NEGATIVE) Ur Phencyclidine (PCP) NEGATIVE (NEGATIVE) Urine Amphetamine NEGATIVE (NEGATIVE) U Benzodiazepine Level NEGATIVE (NEGATIVE) Urine Cocaine NEGATIVE (NEGATIVE) Urine Marijuana (THC) NEGATIVE (NEGATIVE) 08/17/21 08/17/21 08/17/21 Range/Units 05:00 05:00 05:00 WBC 9.5 (4.0-10.5) K/mm3 RBC 5.03 (4.1-5.6) M/mm3 Hgb 14.5 (12.5-18.0) gm/dl Hct 42.4 (42-50) % MCV 84.3 (78-100) fl MCH 28.8 (26-32) pg MCHC 34.2 (32-36) g/dl RDW 13.1 (11.5-14.0) % Plt Count 241 (150-450) K/mm3 MPV 10.3 (7.5-11.0) fl Gran % 60.7 (36.0-66.0) % Eos # (Auto) 0.09 (0-0.5) Absolute Lymphs (auto) 3.03 (1.0-4.6) Absolute Monos (auto) 0.58 (0.0-1.3) Lymphocytes % 32.0 (24.0-44.0) % Monocytes % 6.1 (0.0-12.0) % Eosinophils % 1.0 (0.00-5.0) % Basophils % 0.2 (0.0-0.4) % Absolute Granulocytes 5.74 (1.4-6.9) Basophils # 0.02 (0-0.4) PT 11.9 (9.4-12.5) SECONDS INR 1.01 (0.8-3.0) Sodium 137 (137-145) mmol/L Potassium 4.0 (3.5-5.1) mmol/L Chloride 100 (98-107) mmol/L Carbon Dioxide 26 (22-30) mmol/L Anion Gap 16.2 H (5-15) MEQ/L BUN 10 (9-20) mg/dL Creatinine 0.62 L (0.66-1.25) mg/dL Estimated GFR > 60.0 ML/MIN Glucose 303 H (74-106) mg/dL POC Glucometer (74 to 106) mg/dL Calcium 9.8 (8.4-10.2) mg/dL Total Bilirubin 0.30 (0.2-1.3) mg/dL AST 18 (17-59) U/L ALT 23 (0-50) U/L Alkaline Phosphatase 103 (38-126) U/L Troponin I (0.000-0.034) ng/mL Serum Total Protein 7.4 (6.3-8.2) g/dL Albumin 4.4 (3.5-5.0) g/dL Urine Color (YELLOW) Urine Appearance (CLEAR) Urine pH (5-6) Ur Specific [place] (1.005-1.025) Urine Protein (Negative) Urine Ketones (NEGATIVE) Urine Blood (0-5) [place]/ul Urine Nitrite (NEGATIVE) Urine Bilirubin (NEGATIVE) Urine Urobilinogen (0-1) mg/dL Ur Leukocyte Esterase (NEGATIVE) Urine WBC (Auto) (0-5) /HPF Urine RBC (Auto) (0-2) /HPF U Epithel Cells (Auto) (FEW) /HPF Urine Bacteria (Auto) (NEGATIVE) /HPF Amorphous Crystals (NEGATIVE) /HPF Urine Culture Reflexed (NO) Urine Glucose (NEGATIVE) mg/dL Urine Opiates Level (NEGATIVE) Ur Methadone (NEGATIVE) Urine Barbiturates (NEGATIVE) Ur Phencyclidine (PCP) (NEGATIVE) Urine Amphetamine (NEGATIVE) U Benzodiazepine Level (NEGATIVE) Urine Cocaine (NEGATIVE) Urine Marijuana (THC) (NEGATIVE) 08/17/21 Range/Units 04:45 WBC (4.0-10.5) K/mm3 RBC (4.1-5.6) M/mm3 Hgb (12.5-18.0) gm/dl Hct (42-50) % MCV (78-100) fl MCH (26-32) pg MCHC (32-36) g/dl RDW (11.5-14.0) % Plt Count (150-450) K/mm3 MPV (7.5-11.0) fl Gran % (36.0-66.0) % Eos # (Auto) (0-0.5) Absolute Lymphs (auto) (1.0-4.6) Absolute Monos (auto) (0.0-1.3) Lymphocytes % (24.0-44.0) % Monocytes % (0.0-12.0) % Eosinophils % (0.00-5.0) % Basophils % (0.0-0.4) % Absolute Granulocytes (1.4-6.9) Basophils # (0-0.4) PT (9.4-12.5) SECONDS INR (0.8-3.0) Sodium (137-145) mmol/L Potassium (3.5-5.1) mmol/L Chloride (98-107) mmol/L Carbon Dioxide (22-30) mmol/L Anion Gap (5-15) MEQ/L BUN (9-20) mg/dL Creatinine (0.66-1.25) mg/dL Estimated GFR ML/MIN Glucose (74-106) mg/dL POC Glucometer 346 H (74 to 106) mg/dL Calcium (8.4-10.2) mg/dL Total Bilirubin (0.2-1.3) mg/dL AST (17-59) U/L ALT (0-50) U/L Alkaline Phosphatase (38-126) U/L Troponin I (0.000-0.034) ng/mL Serum Total Protein (6.3-8.2) g/dL Albumin (3.5-5.0) g/dL Urine Color (YELLOW) Urine Appearance (CLEAR) Urine pH (5-6) Ur Specific [place] (1.005-1.025) Urine Protein (Negative) Urine Ketones (NEGATIVE) Urine Blood (0-5) [place]/ul Urine Nitrite (NEGATIVE) Urine Bilirubin (NEGATIVE) Urine Urobilinogen (0-1) mg/dL Ur Leukocyte Esterase (NEGATIVE) Urine WBC (Auto) (0-5) /HPF Urine RBC (Auto) (0-2) /HPF U Epithel Cells (Auto) (FEW) /HPF Urine Bacteria (Auto) (NEGATIVE) /HPF Amorphous Crystals (NEGATIVE) /HPF Urine Culture Reflexed (NO) Urine Glucose (NEGATIVE) mg/dL Urine Opiates Level (NEGATIVE) Ur Methadone (NEGATIVE) Urine Barbiturates (NEGATIVE) Ur Phencyclidine (PCP) (NEGATIVE) Urine Amphetamine (NEGATIVE) U Benzodiazepine Level (NEGATIVE) Urine Cocaine (NEGATIVE) Urine Marijuana (THC) (NEGATIVE) - Progress Progress: improved Progress Note: 08/17/21 05:03 CAT scan of the head without contrast shows no acute intracranial abnormality Counseled pt/family regarding: lab results, diagnosis, need for follow-up, rad results - Departure Departure Disposition: Home Clinical Impression: Headache, Hypertension, Anxiety, Hyperglycemia Condition: Stable Critical Care Time: No Referrals: RALPH HOGAN MD [Primary Care Provider] - Additional Instructions: Take all your medications as prescribed. Call your primary care physician tomorrow morning for further evaluation and management.
[2021-08-17] MEDS ORDERED: MORPHINE SULFATE 2 MG INJ IV ONE (04:53)
[2021-08-17] MEDS ORDERED: Zofran 4 MG/2 ML VIAL IV ONE (04:53)
[2021-08-17] MEDS ORDERED: MORPHINE SULFATE 2 MG INJ ONE (05:05)
[2021-08-17] MEDS ORDERED: Zofran 4 MG/2 ML VIAL ONE (05:05)
[2021-08-17 05:24] LABS: Absolute Neutrophil Ct (ANC) 5.74 (1.4-6.9); BASOPHIL % 0.2 % (0.0-0.4); Basophil (Absolute #) 0.02 (0-0.4); Eosinophil (Absolute #) 0.09 (0-0.5); Hematocrit 42.4 % (42-50); Hemoglobin 14.5 gm/dl (12.5-18.0); Lymphocyte (Absolute #) 3.03 (1.0-4.6); Mean Cell Volume 84.3 fl (78-100); Mean Corpuscular Hemoglobin 28.8 pg (26-32); Mean Corpuscular Hgb Concent. 34.2 g/dl (32-36); Mean Platelet Volume 10.3 fl (7.5-11.0); Monocyte (Absolute #) 0.58 (0.0-1.3); Monocytes % 6.1 % (0.0-12.0); Neutrophil % 60.7 % (36.0-66.0); Platelet Count 241 K/mm3 (150-450); Red Blood Count 5.03 M/mm3 (4.1-5.6); Red Cell Distribution Width 13.1 % (11.5-14.0); White Blood Count 9.5 K/mm3 (4.0-10.5)
[2021-08-17 05:34] LABS: INR 1.01 (0.8-3.0); PROTIME 11.9 SECONDS (9.4-12.5)
[2021-08-17 05:35] LABS: Amourphous Crystal FEW /HPF (NEGATIVE); Appearance CLEAR (CLEAR); Bacteria RARE /HPF (NEGATIVE); Bilirubin NEGATIVE (NEGATIVE); Blood NEGATIVE Ery/ul (0-5); Epithelial Cells RARE /HPF (FEW); Glucose >=500 mg/dL (NEGATIVE); Ketones NEGATIVE (NEGATIVE); Leukocyte Esterase NEGATIVE (NEGATIVE); Nitrite NEGATIVE (NEGATIVE); Protein,Urine Dip NEGATIVE (Negative); Urobilinogen NEGATIVE mg/dL (0-1)
[2021-08-17 05:38] LABS: ALBUMIN 4.4 g/dL (3.5-5.0); ALKALINE PHOSPHATASE 103 U/L (38-126); ANION GAP 16.2 MEQ/L (5-15); BLOOD UREA NITROGEN 10 mg/dL (9-20); CHLORIDE 100 mmol/L (98-107); Calcium 9.8 mg/dL (8.4-10.2); Carbon Dioxide 26 mmol/L (22-30); Creatinine 1 0.62 mg/dL (0.66-1.25); EST GLOMERULAR FILTRATION RATE > 60.0 ML/MIN; Glucose 303 mg/dL (74-106); SGOT/AST 18 U/L (17-59); SGPT/ALT 23 U/L (0-50); SODIUM 137 mmol/L (137-145); Total Protein 7.4 g/dL (6.3-8.2)
[2021-08-17 05:44] LABS: Amphetamine,Urine NEGATIVE (NEGATIVE); Barbiturate,Urine NEGATIVE (NEGATIVE); Benzodiazepine,Urine NEGATIVE (NEGATIVE); Cocaine,Urine NEGATIVE (NEGATIVE); Methadone,Urine NEGATIVE (NEGATIVE); Opiate,Urine NEGATIVE (NEGATIVE); PCP,Urine NEGATIVE (NEGATIVE); THC,Urine NEGATIVE (NEGATIVE)
[2021-08-17 06:33] VITALS: BP 129/67; PULSE 93; O2SAT 96
--- NOTE | 2021-08-17 07:52 | XRAY ---
Indication: Right upper extremity numbness. Stroke. Multiple contiguous axial images obtained through the head without contrast. Comparison: September 17, 2015. Stable small old infarct right basal ganglia and anatomic variant for cavum septum pellucidum. No acute intracranial hemorrhage, abnormal extra-axial fluid collection, or mass effect. Fourth ventricle is midline without hydrocephalus. Webb-white matter differentiation preserved. Bony calvarium intact. Visualized paranasal sinuses and mastoid air cells are clear. Impression: 1. Stable old right basal ganglia infarct. 2. Remaining CT head without contrast exam is negative. Comment: Preliminary interpretation made by [facility]. No critical discrepancy.
== END 2021-08-17 06:55 | disposition home or self-care (01) ==
LOC: ED 04:05
DX: R51.9 Headache, unspecified (principal); E11.65 Type 2 diabetes mellitus with hyperglycemia; I10 Essential (primary) hypertension; R07.9 Chest pain, unspecified; F41.9 Anxiety disorder, unspecified; F20.9 Schizophrenia, unspecified; Z79.899 Other long term (current) drug therapy
CPT/HCPCS: 36000; 36415; 70450; 80053; 80307; 81001; 82947; 84484; 85025; 85610; 93005; 93041; 94760; 96374; 99284; J2270; J2405

== ENCOUNTER 2024-03-06 20:27 | Emergency (ER) | payer MEDICAID, OTHER ==
[2024-03-06 20:39] VITALS: TEMP 98
[2024-03-06 21:45] LABS: Absolute Neutrophil Ct (ANC) 5.64 x10^3/uL (1.4-6.9); BASOPHIL % 0.3 % (0.0-0.4); Basophil (Absolute #) 0.03 x10^3/uL (0-0.4); Eosinophil % 0.8 % (0.00-5.0); Eosinophil (Absolute #) 0.07 x10^3/uL (0-0.5); Hematocrit 40.1 % (42-50); Hemoglobin 14.1 g/dL (12.5-18.0); IMMATURE GRAN # 0.02 x10^3u/L (0.00-0.03); IMMATURE GRAN % 0.2 % (0.00-0.4); Lymphocyte (Absolute #) 2.56 x10^3/uL (1.0-4.6); Mean Cell Volume 84.6 fL (78-100); Mean Corpuscular Hemoglobin 29.7 pg (26-32); Mean Corpuscular Hgb Concent. 35.2 g/dL (32-36); Mean Platelet Volume 10.1 fL (7.5-11.0); Monocyte (Absolute #) 0.52 x10^3/uL (0.0-1.3); Monocytes % 5.9 % (0.0-12.0); Neutrophil % 63.8 % (36.0-66.0); Platelet Count 253 x10^3/uL (150-450); Red Blood Count 4.74 x10^6/uL (4.1-5.6); Red Cell Distribution Width 12.6 % (11.5-14.0); White Blood Count 8.8 x10^3/uL (4.0-10.5)
[2024-03-06] MEDS ORDERED: Sodium Chloride 0.9% 1000 ML 1,000 ML ONE (21:57)
[2024-03-06] MEDS ORDERED: BABY ASPIRIN 81 MG CHEW ONE (21:57)
[2024-03-06] MEDS: Sodium Chloride 0.9% 1000 ML 1,000 ML IV STA (21:59)
[2024-03-06] MEDS: BABY ASPIRIN 81 MG CHEW PO ONE (21:59)
[2024-03-06 22:00] LABS: ANION GAP 14.8 MEQ/L (5-15); BILIRUBIN,TOTAL 0.4 mg/dL (0.2-1.3); Calcium 9.2 mg/dL (8.4-10.2); Creatinine 1 0.87 mg/dL (0.66-1.25); EST GLOMERULAR FILTRATION RATE 120.5 ML/MIN; Potassium 4.2 mmol/L (3.5-5.1); Total Protein 7.1 g/dL (6.3-8.2)
[2024-03-06 22:11] LABS: NT PRO BNPII 70.3 pg/mL (<300); TROPONIN 0.019 ng/mL (0.000-0.033)
[2024-03-06 22:20] LABS: ADD URINE CULTURE? NO (NO); Appearance Clear (Clear); Bacteria None Seen /HPF (None Seen); Bilirubin Negative (Negative); Blood Negative (Negative); Epithelial Cells None Seen /HPF (None Seen); Glucose, Urine >=1000 mg/dL (Negative); Hyaline Casts NONE SEEN /LPF (0-2); Ketones Trace (Negative); Leukocyte Esterase Negative (Negative); Nitrite Negative (Negative); Ph 5.5 (4.6-8.0); Protein,Urine Dip Negative (Negative); RBC 0-2 /HPF (0-5); Specific Gravity >=1.030 (1.005-1.030); Urobilinogen 0.2 mg/dL (0.2); WBC 0-2 /HPF (0-5)
[2024-03-06 22:31] LABS: Amphetamine,Urine NEGATIVE (NEGATIVE); Barbiturate,Urine NEGATIVE (NEGATIVE); Benzodiazepine,Urine NEGATIVE (NEGATIVE); Cocaine,Urine NEGATIVE (NEGATIVE); Methadone,Urine NEGATIVE (NEGATIVE); Opiate,Urine NEGATIVE (NEGATIVE); PCP,Urine NEGATIVE (NEGATIVE); THC,Urine POSITIVE (NEGATIVE)
--- NOTE | 2024-03-06 22:56 | ERPHSYRPT ---
- History of Present Illness Time Seen by Provider: 03/06/24 20:28 Source: patient Exam Limitations: no limitations Patient Subjective Stated Complaint: chest pain Triage Nursing Assessment: pt ambulated into ER without diff, pt alert and oriented x4. Pt c/o midsternal chest pain x1 week. Pt had a n-stemi on 02/27/24 and had cardiac cath at [facility] with no internention. Pt denies any radiation of pain. Pt's lungs are clear. Pt states he has had some chest discomfort ever since his n-stemi but the pain is better. Pt has not taken any of the medications he was sent home with due to being unable to afford them. Physician History: Patient is here with chest pain for 1 week. Midsternal. Patient states that has increased over the past 2 to 3 days. Patient states he had an NSTEMI on 02/27/2024. Patient was transferred to [facility] from [facility]. Patient went on to have a cardiac catheterization done 2 days later. This was done by Dr. Carlson, per the patient. There was no intervention done during that catheterization although he did have some blockages. Patient states that he has been unable to afford the medications he was sent home on. Therefore he has not been taking them. He has no other falls, trauma, fever, chills. He does have a past medical history significant for diabetes and meth use. 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 He does smoke cigarettes daily. Allergies/Adverse Reactions: diphenhydramine [From Benadryl] Adverse Reaction (Intermediate, Verified 03/06/24 20:55) latex Adverse Reaction (Mild, Verified 03/06/24 20:55) Rash tape Allergy (Uncoded 03/06/24 20:56) Blisters Home Medications: No Reportable Medications [No Reported Medications] 03/06/24 [History] Hx Tetanus, Diphtheria Vaccination/Date Given: Yes Hx Influenza Vaccination/Date Given: No Hx Pneumococcal Vaccination/Date Given: No Immunizations Up to Date: No Travel Risk - International Travel Have you traveled outside of the country in past 3 weeks: No - Emerging Infectious Disease Are you exhibiting symptoms associated with any current EIDs: Yes Symptoms: Shortness of Breath - Past Medical History Pertinent Past Medical History: Yes Neurological History: Stroke ENT History: No Pertinent History Cardiac History: Angina, Myocardial Infarction ([place]), Other Respiratory History: No Pertinent History Endocrine Medical History: Diabetes Type II Musculoskeletal History: Other GI Medical History: No Pertinent History History: No Pertinent History Psycho-Social History: Anxiety, Depression, Other Male Reproductive Disorders: No Pertinent History Other Medical History: EXPLOSIVE DISORDER, CHRONIC RT ELBOW DISLOCATION, FACTOR V, LACUNAR INFARCT, TESTICULAR ABSCESS, pericarditis, schizophrenic. HEP C- cured - Past Surgical History Past Surgical History: Yes Neuro Surgical History: No Pertinent History Cardiac: No Pertinent History, Cardiac Catheterization Respiratory: No Pertinent History Gastrointestinal: Other Genitourinary: No Pertinent History Musculoskeletal: Orthopedic Surgery Male Surgical History: No Pertinent History Other Surgical History: RIGHT arm and elbow surgery.tonsilectomy, rt hand, adenoids removed, back biopsy (birthmark), myringotomy, lt great toenail partial removal, Abscess I&D - Social History Smoking Status: Current every day smoker How long have you smoked: 10 yrs Exposure to second hand smoke: Yes Drug Use: marijuana Patient Lives Alone: No - Nursing Vital Signs Nursing Vital Signs: Initial Vital Signs Temperature 98.0 F 03/06/24 20:33 Pulse Rate 108 H 03/06/24 20:33 Respiratory Rate 30 H 03/06/24 20:33 Blood Pressure 104/69 03/06/24 20:33 O2 Sat by Pulse Oximetry 100 03/06/24 20:33 Pain Scale Pain Intensity 4 - Physical Exam SpO2: 96 Comments: 03/06/24 22:52 Review of Systems Constitutional: Negative for fever. HENT: Negative for congestion. Respiratory: Negative for shortness of breath. Cardiovascular: Chest pain Gastrointestinal: Negative for abdominal pain. Genitourinary: Negative for dysuria. Musculoskeletal: Negative for back pain. Skin: Negative for rash. Neurological: Negative for headaches. Psychiatric/Behavioral: Negative for behavioral problems. All other systems reviewed and are negative. Physical Exam Vitals signs and nursing note reviewed. Constitutional: Appearance: Patient is well-developed. HENT: Head: Normocephalic and atraumatic. Eyes: Conjunctiva/sclera: Conjunctivae normal. Neck: Musculoskeletal: Normal range of motion. Trachea: No tracheal deviation. Cardiovascular: Rate and Rhythm: Normal rate. Pulmonary: Effort: Pulmonary effort is normal. No respiratory distress. Abdominal: Palpations: Abdomen is soft. Musculoskeletal: General: No deformity. Skin: General: Skin is warm and dry. Neurological/ Psychiatric: Mental Status: Mental status, behavior, interaction with environment is appropriate for patient's age and condition - Course Nursing assessment & vital signs reviewed: Yes EKG Interpreted by Me: Sinus Rhythm (Sinus tachycardia, rate of 108, ST inversion and depression in lead III however no other ST elevation or signs of acute [place]) Ordered Tests: Active Orders 24 hr Category Date Time Status Colorist Dyer STAT Care 03/06/24 20:47 Active EKG-ER Only STAT Care 03/06/24 20:46 Active IV Insertion STAT Care 03/06/24 20:46 Active ACO SDOH Referral ONCE Cons 03/06/24 20:55 Active CHEST 1 VIEW (PORTABLE) Stat Exams 03/06/24 20:47 Taken CBC W DIFF Stat Lab 03/06/24 21:20 Completed CK-Creatinine Phosphokinase Stat Lab 03/06/24 21:20 Completed CMP Stat Lab 03/06/24 21:20 Completed D-DIMER QUANTITATIVE Stat Lab 03/06/24 21:20 Completed LIPASE Stat Lab 03/06/24 21:20 Completed NT PRO BNPII Stat Lab 03/06/24 21:20 Completed TROPONIN Q4H Lab 03/06/24 21:20 Completed TROPONIN Q4H Lab 03/07/24 01:00 Ordered TROPONIN Q4H Lab 03/07/24 05:00 Ordered UA W/RFX UR CULTURE Stat Lab 03/06/24 22:05 Completed Urine Triage Profile Stat Lab 03/06/24 22:05 Completed Medication Summary Discontinued Medications Generic Name Dose Route Start Last Admin Trade Name Freq PRN Reason Stop Dose Admin Aspirin 324 mg 03/06/24 20:46 03/06/24 21:59 Aspirin 81 Mg Tab.Chew PO 03/06/24 20:47 324 mg STAT ONE Administration Aspirin Confirm 03/06/24 21:57 Aspirin 81 Mg Tab.Chew Administered 03/06/24 21:58 Dose 324 mg .ROUTE .STK-MED ONE Sodium Chloride 1,000 mls @ 999 mls/hr 03/06/24 20:46 03/06/24 21:59 Sodium Chloride 0.9% 1000 Ml IV 03/06/24 21:46 999 mls/hr .Q1H1M STA Administration Sodium Chloride Confirm 03/06/24 21:57 Sodium Chloride 0.9% 1000 Ml Administered 03/06/24 21:58 Dose 1,000 mls @ .ROUTE .[facility] ONE Lab/Rad Data: Laboratory Result Diagrams 03/06/24 21:20 03/06/24 21:20 Laboratory Results 03/06/24 03/06/24 03/06/24 Range/Units 22:05 22:05 21:20 WBC (4.0-10.5) x10^3/uL RBC (4.1-5.6) x10^6/uL Hgb (12.5-18.0) g/dL Hct (42-50) % MCV (78-100) fL MCH (26-32) pg MCHC (32-36) g/dL RDW (11.5-14.0) % Plt Count (150-450) x10^3/uL MPV (7.5-11.0) fL Gran % (36.0-66.0) % Immature Gran % (Auto) (0.00-0.4) % Nucleat RBC Rel Count (0.00-0.1) % Eos # (Auto) (0-0.5) x10^3/uL Immature Gran # (Auto) (0.00-0.03) x10^3u/L Absolute Lymphs (auto) (1.0-4.6) x10^3/uL Absolute Monos (auto) (0.0-1.3) x10^3/uL Absolute Nucleated RBC (0.00-0.01) x10^3u/L Lymphocytes % (24.0-44.0) % Monocytes % (0.0-12.0) % Eosinophils % (0.00-5.0) % Basophils % (0.0-0.4) % Absolute Granulocytes (1.4-6.9) x10^3/uL Basophils # (0-0.4) x10^3/uL D-Dimer (0.0-0.50) mg/L Sodium (135-145) mmol/L Potassium (3.5-5.1) mmol/L Chloride (98-107) mmol/L Carbon Dioxide (22-30) mmol/L Anion Gap (5-15) MEQ/L BUN (9-20) mg/dL Creatinine (0.66-1.25) mg/dL Estimated GFR ML/MIN Glucose (74-106) mg/dL Calcium (8.4-10.2) mg/dL Total Bilirubin (0.2-1.3) mg/dL AST (17-59) U/L ALT (0-50) U/L Alkaline Phosphatase (38-126) U/L Creatine Kinase (55-170) U/L Troponin I 0.019 (0.000-0.033) ng/mL NT-Pro-B Natriuret Pep 70.3 (<300) pg/mL Serum Total Protein (6.3-8.2) g/dL Albumin (3.5-5.0) g/dL Lipase (23-300) U/L Urine Color Yellow (Yellow) Urine Appearance Clear (Clear) Urine pH 5.5 (4.6-8.0) Ur Specific [place] >=1.030 A (1.005-1.030) Urine Protein Negative (Negative) Urine Glucose (UA) >=1000 A (Negative) mg/dL Urine Ketones Trace A (Negative) Urine Blood Negative (Negative) Urine Nitrite Negative (Negative) Urine Bilirubin Negative (Negative) Urine Urobilinogen 0.2 (0.2) mg/dL Ur Leukocyte Esterase Negative (Negative) U Hyaline Cast (Auto) NONE SEEN (0-2) /LPF Urine Microscopic RBC 0-2 (0-5) /HPF Urine Microscopic WBC 0-2 (0-5) /HPF Ur Epithelial Cells None Seen (None Seen) /HPF Urine Bacteria None Seen (None Seen) /HPF Urine Culture Reflexed NO (NO) Urine Opiates Level NEGATIVE (NEGATIVE) Ur Methadone NEGATIVE (NEGATIVE) Urine Barbiturates NEGATIVE (NEGATIVE) Ur Phencyclidine (PCP) NEGATIVE (NEGATIVE) Urine Amphetamine NEGATIVE (NEGATIVE) U Benzodiazepine Level NEGATIVE (NEGATIVE) Urine Cocaine NEGATIVE (NEGATIVE) Urine Marijuana (THC) POSITIVE A (NEGATIVE) 03/06/24 03/06/24 03/06/24 Range/Units 21:20 21:20 21:20 WBC 8.8 (4.0-10.5) x10^3/uL RBC 4.74 (4.1-5.6) x10^6/uL Hgb 14.1 (12.5-18.0) g/dL Hct 40.1 L (42-50) % MCV 84.6 (78-100) fL MCH 29.7 (26-32) pg MCHC 35.2 (32-36) g/dL RDW 12.6 (11.5-14.0) % Plt Count 253 (150-450) x10^3/uL MPV 10.1 (7.5-11.0) fL Gran % 63.8 (36.0-66.0) % Immature Gran % (Auto) 0.2 (0.00-0.4) % Nucleat RBC Rel Count 0.0 (0.00-0.1) % Eos # (Auto) 0.07 (0-0.5) x10^3/uL Immature Gran # (Auto) 0.02 (0.00-0.03) x10^3u/L Absolute Lymphs (auto) 2.56 (1.0-4.6) x10^3/uL Absolute Monos (auto) 0.52 (0.0-1.3) x10^3/uL Absolute Nucleated RBC 0.00 (0.00-0.01) x10^3u/L Lymphocytes % 29.0 (24.0-44.0) % Monocytes % 5.9 (0.0-12.0) % Eosinophils % 0.8 (0.00-5.0) % Basophils % 0.3 (0.0-0.4) % Absolute Granulocytes 5.64 (1.4-6.9) x10^3/uL Basophils # 0.03 (0-0.4) x10^3/uL D-Dimer 0.41 (0.0-0.50) mg/L Sodium 136 (135-145) mmol/L Potassium 4.2 (3.5-5.1) mmol/L Chloride 103 (98-107) mmol/L Carbon Dioxide 22 (22-30) mmol/L Anion Gap 14.8 (5-15) MEQ/L BUN 17 (9-20) mg/dL Creatinine 0.87 (0.66-1.25) mg/dL Estimated GFR 120.5 ML/MIN Glucose 397 H (74-106) mg/dL Calcium 9.2 (8.4-10.2) mg/dL Total Bilirubin 0.40 (0.2-1.3) mg/dL AST 19 (17-59) U/L ALT 20 (0-50) U/L Alkaline Phosphatase 93 (38-126) U/L Creatine Kinase 47 L (55-170) U/L Troponin I (0.000-0.033) ng/mL NT-Pro-B Natriuret Pep (<300) pg/mL Serum Total Protein 7.1 (6.3-8.2) g/dL Albumin 4.0 (3.5-5.0) g/dL Lipase 78 (23-300) U/L Urine Color (Yellow) Urine Appearance (Clear) Urine pH (4.6-8.0) Ur Specific [place] (1.005-1.030) Urine Protein (Negative) Urine Glucose (UA) (Negative) mg/dL Urine Ketones (Negative) Urine Blood (Negative) Urine Nitrite (Negative) Urine Bilirubin (Negative) Urine Urobilinogen (0.2) mg/dL Ur Leukocyte Esterase (Negative) U Hyaline Cast (Auto) (0-2) /LPF Urine Microscopic RBC (0-5) /HPF Urine Microscopic WBC (0-5) /HPF Ur Epithelial Cells (None Seen) /HPF Urine Bacteria (None Seen) /HPF Urine Culture Reflexed (NO) Urine Opiates Level (NEGATIVE) Ur Methadone (NEGATIVE) Urine Barbiturates (NEGATIVE) Ur Phencyclidine (PCP) (NEGATIVE) Urine Amphetamine (NEGATIVE) U Benzodiazepine Level (NEGATIVE) Urine Cocaine (NEGATIVE) Urine Marijuana (THC) (NEGATIVE) - Progress Progress: improved Progress Note: 03/06/24 22:54 Differential diagnosis includes: PNA, STEMI, NSTEMI, other infection, musculoskeletal pain, pneumothorax - We'll obtain basic labs, fluids, EKG, troponin, chest x-ray - EKG shows no ST changes - my read - O2 saturations consistently greater than 95%. - CXR shows no pneumonia, pneumothorax - my read Reevaluation: Given his recent NSTEMI and cardiac catheterization at [facility]. We did discuss returning to [place] versus another hospital. Given that he had recent intervention at [facility] I did recommend transfer back to there. Patient did agree to being transferred back. I called [facility] transfer line, patient was auto accepted by DONTRELL Castaneda via the transfer service. This will be a ER to ER transfer. Patient hemodynamically stable. First troponin is within normal limits. He has not had any increase in chest pain here. 325 mg oral aspirin given. Plan for transfer given he is hemodynamically stable with recent procedure at [facility]. I do think the best follow-up care could be provided for him. 03/06/24 22:56 Fluids given for hyperglycemia in the emergency department. Counseled pt/family regarding: drug and/or alcohol abuse, lab results, diagnosis, need for follow-up, rad results, smoking cessation Medical Desision Making - External Record(s) Reviewed Records reviewed as a part of evaluation & management: Discharge Summary - Discussion of managment Care discussed with:: specialist Reviewed:: Test results, Need for additional workup Agreed on:: decision to admit Will see patient: in hospital - Social Determinants of Health Pt's dx & treatment plan are significantly limited by SDOH: financial hardships Limited access to: transportation - Diagnostic Testing Diagnostic test were ordered, analyzed, and reviewed by me: Yes Radiological Interpretation: Interpreted by me - Departure Departure Disposition: Transfer Clinical Impression: Chest pain with high risk of acute coronary syndrome, Hyperglycemia due to diabetes mellitus Condition: Stable Critical Care Time: No Referrals: [facility]ЛЕ[facility] [Primary Care Provider] - Follow up/PCP as directed
[2024-03-06 23:02] VITALS: BP 111/67; PULSE 84; RESP 28; O2SAT 95
--- NOTE | 2024-03-07 08:47 | XRAY ---
Indication: Chest pain. Comparison: September 26, 2019 Portable chest slightly under inflated and remains clear. Heart not enlarged. Bony thorax intact. No new/acute findings.
== END 2024-03-06 23:12 | disposition short-term general hospital (02) ==
LOC: ED 20:27
DX: R07.9 Chest pain, unspecified (principal); E11.65 Type 2 diabetes mellitus with hyperglycemia; Z72.0 Tobacco use; Z91.141 Patient's other noncompliance with medication regimen due to financial hardship; Z59.86 Financial insecurity; Z59.82 Transportation insecurity
CPT/HCPCS: 36000; 36415; 71045; 80053; 80307; 81001; 82550; 83690; 83880; 84484; 85025; 85379; 93005; 93041; 99285; A9270-GY

== ENCOUNTER 2024-04-29 01:43 | Emergency (ER) | payer SELFPAY ==
[2024-04-29] MEDS ORDERED: BABY ASPIRIN 81 MG CHEW ONE (02:38)
[2024-04-29] MEDS ORDERED: Ativan 2 MG/1 ML VIAL ONE (02:39)
[2024-04-29] MEDS ORDERED: Sodium Chloride 0.9% 1000 ML 1,000 ML ONE ×2 (02:39→03:35)
[2024-04-29] MEDS ORDERED: Pepcid 20 MG VIAL IV ONE (02:39)
[2024-04-29 02:43] VITALS: TEMP 98.1
[2024-04-29] MEDS: Sodium Chloride 0.9% 1000 ML 1,000 ML IV STA ×2 (02:43→03:36)
[2024-04-29] MEDS: BABY ASPIRIN 81 MG CHEW PO ONE (02:44)
[2024-04-29] MEDS: Pepcid 20 MG VIAL IV ONE (02:44)
[2024-04-29 02:46] LABS: Absolute Neutrophil Ct (ANC) 8.39 x10^3/uL (1.78-5.38); BASOPHIL % 0.2 % (0.2-1.2); Basophil (Absolute #) 0.02 x10^3/uL (0.01-0.08); Eosinophil % 0.2 % (0.8-7.0); Eosinophil (Absolute #) 0.02 x10^3/uL (0.04-0.54); Hematocrit 43.7 % (40.1-51.0); Hemoglobin 15.3 g/dL (13.7-17.5); IMMATURE GRAN # 0.06 x10^3u/L (0.001-0.031); IMMATURE GRAN % 0.5 % (0.001-0.429); Lymphocytes % 19.7 % (21.8-53.1); Mean Cell Volume 82.9 fL (79.0-92.2); Monocyte (Absolute #) 0.87 x10^3/uL (0.30-0.82); Monocytes % 7.5 % (5.3-12.2); Neutrophil % 71.9 % (34.0-67.9); Platelet Count 270 x10^3/uL (163-337); Red Blood Count 5.27 x10^6/uL (4.63-6.08); Red Cell Distribution Width 12.8 % (11.6-14.4); White Blood Count 11.7 x10^3/uL (4.23-9.07)
[2024-04-29 02:47] LABS: Appearance Clear (Clear); Bilirubin Negative (Negative); Blood Negative (Negative); Glucose, Urine >=1000 mg/dL (Negative); Ketones Negative (Negative); Leukocyte Esterase Negative (Negative); Nitrite Negative (Negative); Ph 5.5 (4.6-8.0); Protein,Urine Dip 30 (Negative); Specific Gravity >=1.030 (1.005-1.030); Urobilinogen 0.2 mg/dL (0.2)
[2024-04-29] MEDS: Ativan 2 MG/1 ML VIAL IV ONE (02:47)
[2024-04-29] MEDS: GI COCKTAIL 45 ML (Maalox/Lidocaine) PO ONE (02:51)
--- NOTE | 2024-04-29 03:01 | ERPHSYRPT ---
- History of Present Illness Time Seen by Provider: 04/29/24 01:59 Source: patient Exam Limitations: no limitations Patient Subjective Stated Complaint: Behavioral problems-Suicidal/homicidal Triage Nursing Assessment: Patient ambulated back to ED and transferred self to bed. Patient A+O X3. Patient's skin pink, warm and dry. Patient states he is a schizophrenic and he is feeling suicidal and homicidal. Patient states at around 0800 on 04/28/2024 he took (14) Gabapentin 600mg then around 2000 he took (7) Gabapentin 600mg. Patient states prior to coming to ED at approx midnight on 04/29/2024 he took 1 Nitro due to chest pain and took 2-1200mg THC gummies. Patient complains of suicide and homicide for several days. Patient currently complains of chest burning 02/22. Physician History: 29-year-old male with history of coronary artery disease status post stenting, anxiety depression, substance abuse, explosive anger outburst disorder presented to the ER with suicidal or homicidal ideations and wants some help. Patient reports he took 14 pills of Neurontin 600 mg each yesterday morning and another 7 around 8 PM tonight and also took 2 THC Gummies 1200 mg just prior to arrival. Patient is tachycardic on presentation, complaining of chest pain dull aching mild to moderate with no associated shortness of breath. Denies any fever or chills. Patient reports for the last few days he is having suicidal ideations and also some homicidal ideation and wants some help before he can actually hurt himself or someone else. Allergies/Adverse Reactions: diphenhydramine [From Benadryl] Adverse Reaction (Intermediate, Verified 04/29/24 02:06) latex Adverse Reaction (Mild, Verified 04/29/24 02:06) Rash tape Allergy (Uncoded 04/29/24 02:06) Blisters Home Medications: Aspirin EC 325 mg [Ecotrin 325 MG] 1 tab PO DAILY 04/29/24 [History] Atorvastatin Calcium 1 tab PO HS 04/29/24 [History] Clopidogrel Bisulfate [PLAVIX Tablet] 1 tab PO DAILY 04/29/24 [History] Hx Tetanus, Diphtheria Vaccination/Date Given: Yes Hx Influenza Vaccination/Date Given: No Hx Pneumococcal Vaccination/Date Given: No Immunizations Up to Date: Yes Travel Risk - International Travel Have you traveled outside of the country in past 3 weeks: No - Emerging Infectious Disease Are you exhibiting symptoms associated with any current EIDs: No Symptoms: Shortness of Breath - Past Medical History Pertinent Past Medical History: Yes Neurological History: Stroke ENT History: No Pertinent History Cardiac History: Angina, Myocardial Infarction (NH), Other Respiratory History: No Pertinent History Endocrine Medical History: Diabetes Type II Musculoskeletal History: Other GI Medical History: No Pertinent History History: No Pertinent History Psycho-Social History: Anxiety, Depression, Other Male Reproductive Disorders: No Pertinent History Other Medical History: EXPLOSIVE DISORDER, CHRONIC RT ELBOW DISLOCATION, FACTOR V, LACUNAR INFARCT, TESTICULAR ABSCESS, pericarditis, schizophrenic. HEP C- cured - Past Surgical History Past Surgical History: Yes Neuro Surgical History: No Pertinent History Cardiac: No Pertinent History, Cardiac Catheterization Respiratory: No Pertinent History Gastrointestinal: Other Genitourinary: No Pertinent History Musculoskeletal: Orthopedic Surgery Male Surgical History: No Pertinent History Other Surgical History: RIGHT arm and elbow surgery.tonsilectomy, rt hand, adenoids removed, back biopsy (birthmark), myringotomy, lt great toenail partial removal, Abscess I&D - Social History Smoking Status: Current every day smoker How long have you smoked: 10 yrs Exposure to second hand smoke: Yes Drug Use: marijuana Patient Lives Alone: No - Social Determinants of Health Will the patient participate in the screening: Yes Do you worry about a steady place to live?: Yes Do you have any problems with any of the following?: No known problems In the past 12 months,have you had to go without utilities?: No Transportation Issues: No Has anyone in your support network made you feel unsafe?: No Have you or anyone in your house had to go without enough: No - Review of Systems Constitutional: No Symptoms Eyes: No Symptoms Ears, Nose, & Throat: No Symptoms Respiratory: No Symptoms Cardiac: Chest Pain Abdominal/Gastrointestinal: No Symptoms Genitourinary Symptoms: No Symptoms Musculoskeletal: No Symptoms Skin: No Symptoms Neurological: No Symptoms Psychological: Anxiety, Suicidal Ideations, Homicidal Ideations, Emotional Lability Endocrine: No Symptoms Hematologic/Lymphatic: No Symptoms Immunological/Allergic: No Symptoms - Nursing Vital Signs Nursing Vital Signs: Initial Vital Signs Temperature 98.1 F 04/29/24 02:19 Pulse Rate 137 H 04/29/24 02:19 Respiratory Rate 20 04/29/24 02:19 Blood Pressure 124/101 04/29/24 02:19 O2 Sat by Pulse Oximetry 97 04/29/24 02:19 Pain Scale Pain Intensity 4 - Physical Exam General Appearance: no apparent distress, alert, anxiety Eyes, Ears, Nose, Throat Exam: normal ENT inspection Neck Exam: normal inspection, non-tender, supple, full range of motion Respiratory Exam: normal breath sounds, lungs clear Cardiovascular Exam: normal heart sounds, tachycardia Gastrointestinal/Abdominal Exam: soft, normal bowel sounds, No tenderness Extremities Exam: normal inspection Neurological Exam: alert, bomb loader II-XII nml as tested, oriented x 3, anxious, No normal mood/affect Appearance: appropriate appearance, appropriate insight, neat, no memory impairment Behavior/Eye Contact/Speech: alert & cooperative, cooperative, good eye contact, normal speech Thoughts/Hallucinations: normal thought pattern Skin Exam: normal color SpO2 Interpretation: normal SpO2: 97 O2 Delivery: Room Air - Course EKG Interpreted by Me: RATE (130), Sinus Tach, NORMAL AXIS, NORMAL INTERVALS, NORMAL QRS, Other (Repeat EKG time 537. Rate 108, sinus tach, no ST elevation, normal axis, normal intervals) Ordered Tests: Active Orders 24 hr Category Date Time Status Photo Technologist STAT Care 04/29/24 02:28 Active EKG-ER Only STAT Care 04/29/24 02:27 Active POCT Glucose Check STAT Care 04/29/24 05:29 Active CHEST 1 VIEW (PORTABLE) Stat Exams 04/29/24 02:27 Taken ACETAMINOPHEN Stat Lab 04/29/24 02:43 Completed CBC W DIFF Stat Lab 04/29/24 02:43 Completed CK-Creatinine Phosphokinase Stat Lab 04/29/24 02:43 Completed CMP Stat Lab 04/29/24 02:43 Completed D-DIMER QUANTITATIVE Stat Lab 04/29/24 03:30 Completed ETHYL ALCOHOL Stat Lab 04/29/24 02:43 Completed MAGNESIUM Stat Lab 04/29/24 02:43 Completed NT PRO BNPII Stat Lab 04/29/24 02:43 Completed POCT GLUCOSE Stat Lab 04/29/24 03:42 Completed POCT GLUCOSE Stat Lab 04/29/24 05:28 Completed PROTIME WITH INR Stat Lab 04/29/24 06:56 Ordered PTT Stat Lab 04/29/24 06:56 Ordered SALICYLATE Stat Lab 04/29/24 02:43 Completed TROPONIN Q4H Lab 04/29/24 02:43 Completed TROPONIN Q4H Lab 04/29/24 06:28 Received TROPONIN Q4H Lab 04/29/24 10:30 Ordered UA W/RFX UR CULTURE Stat Lab 04/29/24 02:46 Completed Urine Triage Profile Stat Lab 04/29/24 02:46 Completed VBG [VENOUS BLOOD GAS] Stat Lab 04/29/24 03:24 Completed Medication Summary Discontinued Medications Generic Name Dose Route Start Last Admin Trade Name Freq PRN Reason Stop Dose Admin Aspirin 324 mg 04/29/24 02:27 04/29/24 02:44 Aspirin 81 Mg Tab.Chew PO 04/29/24 02:28 324 mg STAT ONE Administration Aspirin Confirm 04/29/24 02:38 Aspirin 81 Mg Tab.Chew Administered 04/29/24 02:39 Dose 324 mg .ROUTE .STK-MED ONE Famotidine 20 mg 04/29/24 02:27 04/29/24 02:44 Famotidine 20 Mg/1 Vial IV 04/29/24 02:28 20 mg STAT ONE Administration Famotidine Confirm 04/29/24 02:39 Famotidine 20 Mg/1 Vial Administered 04/29/24 02:40 Dose 20 mg IV .STK-MED ONE Heparin Sodium (Beef Lung) 5,000 unit 04/29/24 06:54 Heparin 5000 Units/0.5 Ml 5,000 Unit/0.5 Ml Syr IV 04/29/24 06:55 STAT ONE Sodium Chloride 1,000 mls @ 999 mls/hr 04/29/24 02:27 04/29/24 03:46 Sodium Chloride 0.9% 1000 Ml IV 04/29/24 03:27 Infused .Q1H1M STA Infusion Sodium Chloride Confirm 04/29/24 02:39 Sodium Chloride 0.9% 1000 Ml Administered 04/29/24 02:40 Dose 1,000 mls @ ud .ROUTE .STK-MED ONE Sodium Chloride 1,000 mls @ 999 mls/hr 04/29/24 03:24 04/29/24 04:49 Sodium Chloride 0.9% 1000 Ml IV 04/29/24 04:24 Infused .Q1H1M STA Infusion Sodium Chloride Confirm 04/29/24 03:35 Sodium Chloride 0.9% 1000 Ml Administered 04/29/24 03:36 Dose 1,000 mls @ ud .ROUTE .STK-MED ONE Insulin Human Regular 6 unit 04/29/24 03:52 04/29/24 03:56 Insulin Regular, Human 1 Unit SQ 04/29/24 03:53 6 unit STAT ONE Administration Insulin Human Regular Confirm 04/29/24 03:55 Insulin Regular, Human 1 Unit Administered 04/29/24 03:56 Dose 6 unit .ROUTE .STK-MED ONE Lorazepam 1 mg 04/29/24 02:28 04/29/24 02:47 Lorazepam 2 Mg/1 Ml 2 Mg Vial IV 04/29/24 02:29 1 mg STAT ONE Administration Lorazepam Confirm 04/29/24 02:39 Lorazepam 2 Mg/1 Ml 2 Mg Vial Administered 04/29/24 02:40 Dose 2 mg .ROUTE .STK-MED ONE Magnesium Hydroxide 45 ml 04/29/24 02:29 04/29/24 02:51 Mag Hydrx/Alum Hyd/Simeth/Lido 45 Ml Bottle PO 04/29/24 02:30 Not Given STAT ONE Lab/Rad Data: Laboratory Result Diagrams 04/29/24 02:43 04/29/24 02:43 Laboratory Results 04/29/24 04/29/24 04/29/24 Range/Units 05:28 03:42 03:30 WBC (4.23-9.07) x10^3/uL RBC (4.63-6.08) x10^6/uL Hgb (13.7-17.5) g/dL Hct (40.1-51.0) % MCV (79.0-92.2) fL MCH (25.7-32.2) pg MCHC (32.3-36.5) g/dL RDW (11.6-14.4) % Plt Count (163-337) x10^3/uL MPV (9.4-12.4) fL Gran % (34.0-67.9) % Immature Gran % (Auto) (0.001-0.429) % Nucleat RBC Rel Count (0.00-0.2) % Eos # (Auto) (0.04-0.54) x10^3/uL Immature Gran # (Auto) (0.001-0.031) x10^3u/L Absolute Lymphs (auto) (1.32-3.57) x10^3/uL Absolute Monos (auto) (0.30-0.82) x10^3/uL Absolute Nucleated RBC (0.00-0.012) x10^3u/L Lymphocytes % (21.8-53.1) % Monocytes % (5.3-12.2) % Eosinophils % (0.8-7.0) % Basophils % (0.2-1.2) % Absolute Granulocytes (1.78-5.38) x10^3/uL Basophils # (0.01-0.08) x10^3/uL D-Dimer < 0.19 (0.0-0.50) mg/L pO2/FiO2 Ratio % VBG pH (7.32-7.42) VBG pCO2 at Pat Temp (42-55) mm/Hg VBG pO2 at Pat Temp (25-40) mm/Hg VBG HCO3 (22-28) meq/L VBG O2 Sat (Brian) (95-100) VBG Base Excess (-2.0-2.0) VBG Hemoglobin VBG Carboxyhemoglobin (0.0-6.9) % T HGB POC Potassium (3.5-5.1) Sodium (135-145) mmol/L Potassium (3.5-5.1) mmol/L Chloride (98-107) mmol/L Carbon Dioxide (22-30) mmol/L Anion Gap (5-15) MEQ/L BUN (9-20) mg/dL Creatinine (0.66-1.25) mg/dL Estimated GFR ML/MIN Glucose (74-106) mg/dL POC Glucometer 289 H 340 H (74 to 106) mg/dL Calcium (8.4-10.2) mg/dL Magnesium (1.6-2.3) mg/dL Total Bilirubin (0.2-1.3) mg/dL AST (17-59) U/L ALT (0-50) U/L Alkaline Phosphatase (38-126) U/L Creatine Kinase (55-170) U/L Troponin I (0.000-0.033) ng/mL NT-Pro-B Natriuret Pep (<300) pg/mL Serum Total Protein (6.3-8.2) g/dL Albumin (3.5-5.0) g/dL Urine Color (Yellow) Urine Appearance (Clear) Urine pH (4.6-8.0) Ur Specific [place] (1.005-1.030) Urine Protein (Negative) Urine Glucose (UA) (Negative) mg/dL Urine Ketones (Negative) Urine Blood (Negative) Urine Nitrite (Negative) Urine Bilirubin (Negative) Urine Urobilinogen (0.2) mg/dL Ur Leukocyte Esterase (Negative) U Hyaline Cast (Auto) (0-2) /LPF Urine Microscopic RBC (0-5) /HPF Urine Microscopic WBC (0-5) /HPF Ur Epithelial Cells (None Seen) /HPF Urine Bacteria (None Seen) /HPF Urine Culture Reflexed (NO) Salicylates (2-20) mg/dL Urine Opiates Level (NEGATIVE) Ur Methadone (NEGATIVE) Acetaminophen (10-30) ug/ml Urine Barbiturates (NEGATIVE) Ur Phencyclidine (PCP) (NEGATIVE) U Benzodiazepine Level (NEGATIVE) Urine Cocaine (NEGATIVE) Urine Marijuana (THC) (NEGATIVE) Ethyl Alcohol (0-10) mg/dL 04/29/24 04/29/24 04/29/24 Range/Units 03:24 02:46 02:46 WBC (4.23-9.07) x10^3/uL RBC (4.63-6.08) x10^6/uL Hgb (13.7-17.5) g/dL Hct (40.1-51.0) % MCV (79.0-92.2) fL MCH (25.7-32.2) pg MCHC (32.3-36.5) g/dL RDW (11.6-14.4) % Plt Count (163-337) x10^3/uL MPV (9.4-12.4) fL Gran % (34.0-67.9) % Immature Gran % (Auto) (0.001-0.429) % Nucleat RBC Rel Count (0.00-0.2) % Eos # (Auto) (0.04-0.54) x10^3/uL Immature Gran # (Auto) (0.001-0.031) x10^3u/L Absolute Lymphs (auto) (1.32-3.57) x10^3/uL Absolute Monos (auto) (0.30-0.82) x10^3/uL Absolute Nucleated RBC (0.00-0.012) x10^3u/L Lymphocytes % (21.8-53.1) % Monocytes % (5.3-12.2) % Eosinophils % (0.8-7.0) % Basophils % (0.2-1.2) % Absolute Granulocytes (1.78-5.38) x10^3/uL Basophils # (0.01-0.08) x10^3/uL D-Dimer (0.0-0.50) mg/L pO2/FiO2 Ratio 21.0 % VBG pH 7.41 (7.32-7.42) VBG pCO2 at Pat Temp 35 L (42-55) mm/Hg VBG pO2 at Pat Temp 52 H (25-40) mm/Hg VBG HCO3 22.2 (22-28) meq/L VBG O2 Sat (Brian) 86.0 L (95-100) VBG Base Excess -1.8 (-2.0-2.0) VBG Hemoglobin 16.1 VBG Carboxyhemoglobin 9.3 H* (0.0-6.9) % T HGB POC Potassium 4.6 (3.5-5.1) Sodium (135-145) mmol/L Potassium (3.5-5.1) mmol/L Chloride (98-107) mmol/L Carbon Dioxide (22-30) mmol/L Anion Gap (5-15) MEQ/L BUN (9-20) mg/dL Creatinine (0.66-1.25) mg/dL Estimated GFR ML/MIN Glucose (74-106) mg/dL POC Glucometer (74 to 106) mg/dL Calcium (8.4-10.2) mg/dL Magnesium (1.6-2.3) mg/dL Total Bilirubin (0.2-1.3) mg/dL AST (17-59) U/L ALT (0-50) U/L Alkaline Phosphatase (38-126) U/L Creatine Kinase (55-170) U/L Troponin I (0.000-0.033) ng/mL NT-Pro-B Natriuret Pep (<300) pg/mL Serum Total Protein (6.3-8.2) g/dL Albumin (3.5-5.0) g/dL Urine Color Yellow (Yellow) Urine Appearance Clear (Clear) Urine pH 5.5 (4.6-8.0) Ur Specific [place] >=1.030 A (1.005-1.030) Urine Protein 30 (Negative) Urine Glucose (UA) >=1000 A (Negative) mg/dL Urine Ketones Negative (Negative) Urine Blood Negative (Negative) Urine Nitrite Negative (Negative) Urine Bilirubin Negative (Negative) Urine Urobilinogen 0.2 (0.2) mg/dL Ur Leukocyte Esterase Negative (Negative) U Hyaline Cast (Auto) NONE SEEN (0-2) /LPF Urine Microscopic RBC 0-2 (0-5) /HPF Urine Microscopic WBC 0-2 (0-5) /HPF Ur Epithelial Cells None Seen (None Seen) /HPF Urine Bacteria None Seen (None Seen) /HPF Urine Culture Reflexed NO (NO) Salicylates (2-20) mg/dL Urine Opiates Level NEGATIVE (NEGATIVE) Ur Methadone NEGATIVE (NEGATIVE) Acetaminophen (10-30) ug/ml Urine Barbiturates NEGATIVE (NEGATIVE) Ur Phencyclidine (PCP) NEGATIVE (NEGATIVE) U Benzodiazepine Level NEGATIVE (NEGATIVE) Urine Cocaine NEGATIVE (NEGATIVE) Urine Marijuana (THC) POSITIVE A (NEGATIVE) Ethyl Alcohol (0-10) mg/dL 04/29/24 04/29/24 04/29/24 Range/Units 02:43 02:43 02:43 WBC 11.7 H (4.23-9.07) x10^3/uL RBC 5.27 (4.63-6.08) x10^6/uL Hgb 15.3 (13.7-17.5) g/dL Hct 43.7 (40.1-51.0) % MCV 82.9 (79.0-92.2) fL MCH 29.0 (25.7-32.2) pg MCHC 35.0 (32.3-36.5) g/dL RDW 12.8 (11.6-14.4) % Plt Count 270 (163-337) x10^3/uL MPV 10.0 (9.4-12.4) fL Gran % 71.9 H (34.0-67.9) % Immature Gran % (Auto) 0.5 H (0.001-0.429) % Nucleat RBC Rel Count 0.0 (0.00-0.2) % Eos # (Auto) 0.02 L (0.04-0.54) x10^3/uL Immature Gran # (Auto) 0.06 H (0.001-0.031) x10^3u/L Absolute Lymphs (auto) 2.30 (1.32-3.57) x10^3/uL Absolute Monos (auto) 0.87 H (0.30-0.82) x10^3/uL Absolute Nucleated RBC 0.00 (0.00-0.012) x10^3u/L Lymphocytes % 19.7 L (21.8-53.1) % Monocytes % 7.5 (5.3-12.2) % Eosinophils % 0.2 L (0.8-7.0) % Basophils % 0.2 (0.2-1.2) % Absolute Granulocytes 8.39 H (1.78-5.38) x10^3/uL Basophils # 0.02 (0.01-0.08) x10^3/uL D-Dimer (0.0-0.50) mg/L pO2/FiO2 Ratio % VBG pH (7.32-7.42) VBG pCO2 at Pat Temp (42-55) mm/Hg VBG pO2 at Pat Temp (25-40) mm/Hg VBG HCO3 (22-28) meq/L VBG O2 Sat (Brian) (95-100) VBG Base Excess (-2.0-2.0) VBG Hemoglobin VBG Carboxyhemoglobin (0.0-6.9) % T HGB POC Potassium (3.5-5.1) Sodium 139 (135-145) mmol/L Potassium 4.2 (3.5-5.1) mmol/L Chloride 101 (98-107) mmol/L Carbon Dioxide 19 L (22-30) mmol/L Anion Gap 22.0 H (5-15) MEQ/L BUN 17 (9-20) mg/dL Creatinine 0.90 (0.66-1.25) mg/dL Estimated GFR 118.6 ML/MIN Glucose 486 H (74-106) mg/dL POC Glucometer (74 to 106) mg/dL Calcium 10.8 H (8.4-10.2) mg/dL Magnesium 1.7 (1.6-2.3) mg/dL Total Bilirubin 0.70 (0.2-1.3) mg/dL AST 25 (17-59) U/L ALT 32 (0-50) U/L Alkaline Phosphatase 100 (38-126) U/L Creatine Kinase 136 (55-170) U/L Troponin I 0.075 H* (0.000-0.033) ng/mL NT-Pro-B Natriuret Pep 77.1 (<300) pg/mL Serum Total Protein 8.5 H (6.3-8.2) g/dL Albumin 4.9 (3.5-5.0) g/dL Urine Color (Yellow) Urine Appearance (Clear) Urine pH (4.6-8.0) Ur Specific [place] (1.005-1.030) Urine Protein (Negative) Urine Glucose (UA) (Negative) mg/dL Urine Ketones (Negative) Urine Blood (Negative) Urine Nitrite (Negative) Urine Bilirubin (Negative) Urine Urobilinogen (0.2) mg/dL Ur Leukocyte Esterase (Negative) U Hyaline Cast (Auto) (0-2) /LPF Urine Microscopic RBC (0-5) /HPF Urine Microscopic WBC (0-5) /HPF Ur Epithelial Cells (None Seen) /HPF Urine Bacteria (None Seen) /HPF Urine Culture Reflexed (NO) Salicylates < 1.0 L (2-20) mg/dL Urine Opiates Level (NEGATIVE) Ur Methadone (NEGATIVE) Acetaminophen < 10 L (10-30) ug/ml Urine Barbiturates (NEGATIVE) Ur Phencyclidine (PCP) (NEGATIVE) U Benzodiazepine Level (NEGATIVE) Urine Cocaine (NEGATIVE) Urine Marijuana (THC) (NEGATIVE) Ethyl Alcohol < 10 (0-10) mg/dL - Progress Progress: improved, re-examined Progress Note: 04/29/24 05:57 29-year-old is evaluated in the ER for overdose on Neurontin and taking THC Gummies prior to arrival. Patient was very anxious on presentation, tachycardic in 130s, given fluids and Ativan, on reevaluation his much calm. He is also given full dose aspirin. Denies any chest pain on reevaluation. The EKG is sinus tach with heart rate in [address] elevations. Initial troponin 0.075. Mildly elevated white count of 11, patient has a glucose in 480s, given 6 units of insulin along with 2 boluses of fluid and it improved to 280s. Patient is not in DKA with a pH of 7.4, although gap is elevated but that is probably related to dehydration/drug-induced. Urine ketones are negative. Urine drug screen is positive for THC. Patient has history of stenting less than 2 months ago at [facility], I believe patient would benefit with transfer to facility with cardiology and health services. I have called transfer center, reviewed history, workup and agreed with transfer up there. Also [facility] and once patient is medically cleared can be evaluated by psych there. I have shared the results of workup with patient and plan of transfer which she understands and agrees. Elevation in troponin could be secondary to drug-induced, since patient is chest pain-free now and elevation is only minimal, I will hold off on heparin. 04/29/24 06:57 [facility] does not have [facility] today and no psych beds are available. Patient was later on declined. I have called [facility], discussed with hospitalist Dr. Mccartney and cardiology Dr. Morris, reviewed history, workup and agreed with transfer. Recommended patient to be heparinized. Plan discussed with patient who understand and agrees. Discussed with Dr.: Other () Will see patient in: ED Counseled pt/family regarding: lab results, diagnosis, rad results, smoking cessation Medical Desision Making - Discussion of managment Care discussed with:: on-call "doc" (Dr. Blue) Reviewed:: Test results Agreed on:: Treatment plan Will see patient: in ED - Diagnostic Testing Diagnostic test were ordered, analyzed, and reviewed by me: Yes Radiological Interpretation: Reviewed by me, Teleradiologist Report - Risk of complications The pt has a mod risk of morbidity or mortality based on: Need for prescription drug management The pt has a high risk of morbidity or mortality based on: Drug therapy requiring intensive monitoring for toxicity, Decision regarding hospitilization or escalation of hosp level of care - Departure Departure Disposition: Transfer Clinical Impression: NSTEMI (non-ST elevated myocardial infarction), Hyperglycemia, Suicidal ideations, Homicidal ideations Drug overdose Qualifiers: Encounter type: initial encounter Injury intent: intentional self-harm Qualified Code(s): T50.902A - Poisoning by unspecified drugs, medicaments and biological substances, intentional self-harm, initial encounter Condition: Stable Critical Care Time: No Referrals: АЛЕКСАНДР AGUIAR, HAT BLOCKING MACHINE OPERATOR [Primary Care Provider] - Follow up/PCP as directed
[2024-04-29 03:03] LABS: Barbiturate,Urine NEGATIVE (NEGATIVE); Benzodiazepine,Urine NEGATIVE (NEGATIVE); Cocaine,Urine NEGATIVE (NEGATIVE); Methadone,Urine NEGATIVE (NEGATIVE); Opiate,Urine NEGATIVE (NEGATIVE); PCP,Urine NEGATIVE (NEGATIVE); THC,Urine POSITIVE (NEGATIVE)
[2024-04-29 03:11] LABS: ACETAMINOPHEN < 10 ug/ml (10-30); ALBUMIN 4.9 g/dL (3.5-5.0); ALKALINE PHOSPHATASE 100 U/L (38-126); BLOOD UREA NITROGEN 17 mg/dL (9-20); CHLORIDE 101 mmol/L (98-107); CK-Creatinine Phosphokinase 136 U/L (55-170); Calcium 10.8 mg/dL (8.4-10.2); Carbon Dioxide 19 mmol/L (22-30); EST GLOMERULAR FILTRATION RATE 118.6 ML/MIN; ETHYL ALCOHOL < 10 mg/dL (0-10); Glucose 486 mg/dL (74-106); MAGNESIUM 1.7 mg/dL (1.6-2.3); NT PRO BNPII 77.1 pg/mL (<300); Potassium 4.2 mmol/L (3.5-5.1); SALICYLATE < 1.0 mg/dL (2-20); SGOT/AST 25 U/L (17-59); SGPT/ALT 32 U/L (0-50); SODIUM 139 mmol/L (135-145); Total Protein 8.5 g/dL (6.3-8.2)
[2024-04-29 03:12] LABS: Bacteria None Seen /HPF (None Seen); Epithelial Cells None Seen /HPF (None Seen); Hyaline Casts NONE SEEN /LPF (0-2); RBC 0-2 /HPF (0-5); WBC 0-2 /HPF (0-5)
[2024-04-29 03:16] LABS: ADD URINE CULTURE? NO (NO)
[2024-04-29 03:36] LABS: VBG BASE EXCESS -1.8 (-2.0-2.0); VBG HCO3- 22.2 meq/L (22-28); VBG HEMOGLOBIN 16.1; VBG POTASSIUM 4.6 (3.5-5.1); VBG pH 7.41 (7.32-7.42)
[2024-04-29 03:38] LABS: VBG CARBOXYHEMOGLOBIN 9.3 % T HGB (0.0-6.9)
[2024-04-29] MEDS ORDERED: HUMULIN R ONE (03:55)
[2024-04-29] MEDS: HUMULIN R SQ ONE (03:56)
[2024-04-29] MEDS ORDERED: HEPARIN 5000 UNITS/0.5 ML (HIGH RISK MED) ONE (07:01)
[2024-04-29] MEDS: HEPARIN 5000 UNITS/0.5 ML (HIGH RISK MED) IV ONE (07:02)
[2024-04-29] MEDS: Heparin 25,000 units/D5W: USE ORDER SET PROTO 25,000 UNITS/250 ML BAG IV SCH (07:22)
[2024-04-29] MEDS ORDERED: Heparin 25,000 units/D5W: USE ORDER SET PROTO 25,000 UNITS/250 ML BAG IV ONE (07:22)
[2024-04-29 07:37] VITALS: BP 101/75; PULSE 107; RESP 16; O2SAT 95
[2024-04-29 08:06] LABS: INR 1.02 (0.8-3.0); PROTIME 11.1 SECONDS (9.4-12.5); PTT 26.8 SECONDS (25.1-36.5)
--- NOTE | 2024-04-29 08:07 | XRAY ---
Indication: Chest pain. Comparison: March 06, 2024 Portable chest remains inflated and clear. Heart not enlarged. Bony thorax intact. No new/acute findings.
== END 2024-04-29 08:03 | disposition short-term general hospital (02) ==
LOC: ED 01:43
DX: I21.4 Non-ST elevation (NSTEMI) myocardial infarction (principal); E11.65 Type 2 diabetes mellitus with hyperglycemia; R45.851 Suicidal ideations; R45.850 Homicidal ideations; T50.902A Poisoning by unspecified drugs, medicaments and biological substances, intentional self-harm, initial encounter; R07.9 Chest pain, unspecified; R00.2 Palpitations; Z79.02 Long term (current) use of antithrombotics/antiplatelets; Z79.899 Other long term (current) drug therapy; Z72.0 Tobacco use; Z59.00 Homelessness unspecified
CPT/HCPCS: 36000; 36415; 71045; 80053; 80143; 80179; 80307; 81001; 82077; 82550; 82805; 82947; 83735; 83880; 84484; 85025; 85379; 85610; 85730; 93005; 93041; 96360; 96372; 96374; 96375; 99285; J1644; J1815; J2060; A9270-GY